=== PATIENT | female | born 1955 | race Caucasian/White ===

== ENCOUNTER 2016-11-11 09:46 | Emergency (ER) ==
[2016-11-11] MEDS ORDERED: TESSALON PO ONE (10:05)
[2016-11-11 10:16] LABS: MANUAL DIFF NEEDED? NO
[2016-11-11 10:17] LABS: BASO% 0.3 % (0.0-0.8); EOS# 0.05 X1000 (0.0-0.7); EOS% 0.5 % (0.0-10.0); HEMATOCRIT 43.9 % (37.0-47.0); HEMOGLOBIN 14.9 g/dL (12.0-16.0); IMM GRAN# 0.07 X1000 (0.0-0.04); IMM GRAN% 0.6 % (0.0-0.5); LYMPH# 2.03 X1000 (1.2-3.4); LYMPH% 18.6 % (20.5-51.1); MCH 29.9 PG (27-31); MCHC 33.9 g/dL (33-37); MCV 88.2 FL (81-99); MONO# 0.89 X1000 (0.11-0.59); MONO% 8.2 % (1.7-9.3); NEUT% 71.8 % (42.2-75.2); PLT 251 X1000 (130-400); RBC 4.98 XMIL (4.2-5.4)
[2016-11-11] MEDS ORDERED: MOTRIN PO ONE (10:29)
[2016-11-11 10:42] LABS: AGAP 12; ALBUMIN 4.5 g/dL (3.5-5.0); ALKALINE PHOSPHATASE 79 U/L (32-104); BUN 23 mg/dL (8-22); CALCIUM 9.8 mg/dL (8.8-10.2); CHLORIDE 100 mmol/L (98-107); COSMO 278; GOT 12 U/L (10-30); GPT 10 U/L (10-36); POTASSIUM 3.7 mmol/L (3.5-5.1); SODIUM 137 mmol/L (136-145); TCO2 25 mmol/L (25-35); TOTAL PROTEIN 7.1 g/dL (6.3-8.3)
--- NOTE | 2016-11-11 10:45 | Diag Imaging Result Document ---
PROCEDURE NAME: CHEST-2 VIEWS - 11/11/2016 CHEST, 2 VIEWS: COMPARISON: 05/10/2016. FINDINGS: Heart size is normal. There are postsurgical changes with volume loss on the right similar to the previous exam. There is a small calcified granuloma from old granulomatous disease at the left upper lobe which is stable. There are no acute changes identified. There is no consolidation, pleural effusion, or pneumothorax identified. IMPRESSION: No evidence of acute disease.
--- NOTE | 2016-11-11 10:46 | PROVIDER DOCUMENTATION ---
HPI-Respiratory General - General Source: patient - History of Present Illness-Resp Quality of Pain: reports: none Onset/Duration: reports: this morning Timing: reports: still present, resolved prior to arrival Exposure: reports: unknown cause Cough Quality/Degree: reports: moderate, dry cough Episode Frequency: occasional episodes Current Respiratory Medication Therapy: Initiated see nurses note Modifying Factors: improves with: nothing Associated Symptoms: reports: cough, fever/chills (F) Similar Symptoms Previously?: Yes Recently seen or treated by another doctor?: Yes <Vikki Ren - Last Filed: 11/11/16 10:42> <Hernan Andrew - Last Filed: 11/11/16 11:00> - General Chief Complaint: Cough Stated Complaint: COLD SX/SOB/COPD Time Seen by Provider: 11/11/16 10:02 Allergies/Adverse Reactions: Patient Allergies Allergy/AdvReac Type Severity Reaction Status Date / Time Sulfa (Sulfonamide Allergy RASH Verified 03/06/16 19:47 Antibiotics) Home Medications: Home Medication List Medication Instructions Recorded Confirmed Last Taken Type Alprazolam [Xanax] 1 mg PO TID PRN PRN 08/06/14 03/08/16 12/12/15 17:00 History Divalproex E.r. [Depakote ER] 500 mg PO BID 08/06/14 03/08/16 12/12/15 17:00 History Albuterol Sulfate Inhaler 2 puff INH Q6H PRN PRN #0 inhaler 08/07/14 03/08/16 17:00 Rx [Ventolin Hfa] Aripiprazole [Abilify] 5 mg PO QHS 02/04/15 03/08/16 12/12/15 17:00 History Budesonide/Formoterol Fumarate 10.2 gm IH BID 02/04/15 03/08/16 12/12/15 17:00 History [Symbicort 160-4.5 Mcg Inhaler] Alprazolam [Xanax] 1 mg PO TID #30 tablet 03/28/16 Unknown Rx Aripiprazole [Abilify] 5 mg PO QHS #30 tablet 03/28/16 Unknown Rx Citalopram [Celexa] 40 mg PO QAM #30 tablet 03/28/16 Unknown Rx Diltiazem C.d. [Cardizem Cd] 240 mg PO DAILY #30 capsule 03/28/16 Unknown Rx Divalproex E.r. [Depakote ER] 500 mg PO BID #60 tablet 03/28/16 Unknown Rx Azithromycin [Zithromax Z-Viral] 250 mg PO DIRECTED #1 pkg 11/11/16 Unknown Rx Guaifenesin/D-Methorphan Hb/PE 1 each PO Q6-8H PRN PRN #14 tablet 11/11/16 Unknown Rx [Deconex Dmx Tablet] - History of Present Illness-Resp Nature of Presenting Problem: Pt is 61 y/o F presents to the ED with cough and F. Pt states hx of lung cancer and numerous episodes of pneumonia. Pt denies SOB. Pt states dry cough. (Vikki Ren) Review of Systems - Adult - REVIEW OF SYSTEMS - ADULT Constitutional: reports: fever. denies: chills Eyes: denies: blurred vision, double vision Ears, Nose, Mouth & Throat: denies: ear pain, nose pain, throat pain Cardiovascular: reports: irregular heart rate (tachy). denies: chest pain, heart murmur Respiratory: reports: cough. denies: shortness of breath, wheezing Gastrointestinal: denies: abdominal pain, diarrhea, nausea, vomiting Genitourinary: denies: dysuria, hematuria Musculoskeletal: denies: bone pain, joint pain, neck pain Integumentary: denies: hives, itching Neurological: denies: dizziness/vertigo, headache/migraines Psychiatric: denies: anxiety, alcohol/drug dependence, depression Endocrine: reports: no symptoms reported Hematologic/Lymphatic: reports: no symptoms reported Allergic/Immunologic: reports: no symptoms reported All Other Systems: Reviewed and Negative <Vikki Ren - Last Filed: 11/11/16 10:42> Past History - Adult - PAST MEDICAL HISTORY-ADULT Review of Records: reports: Nursing Assessment Review, Medications Reviewed, Social history reviewed & non-contributory. Major Childhood Illnesses: reports: denies history Cardiovascular: reports: HTN, hyperlipidemia Respiratory: reports: asthma, COPD (possible), cancer (lung cancer), pneumonia Gastrointestinal: reports: denies history Obstetrical/Gynecological: reports: denies history Genitourinary: reports: denies history Musculoskeletal: reports: denies history Neurological: reports: denies history Psychiatric: reports: anxiety, depression Endocrine/Immune: reports: denies history Other Conditions: reports: denies history Additional History: currently taking precautionary chemotherapy - PRIOR SURGERIES/PROCEDURES Surgical/Procedure History: reports: appendectomy, hysterectomy, , other (partial lung removed due to lung cancer) - IMMUNIZATION STATUS Childhood Immunizations: See Nurse Assessment Flu Vaccine: See Nurse Assessment - FAMILY HISTORY Family History: CAD over 55 yo, cancer (grandmother with uterine cancer; mother with breast cancer) - SOCIAL HISTORY Smoking: quit greater than 1 year, cigarettes Substance Use: denies Living Situation: family <Vikki Ren - Last Filed: 11/11/16 10:42> Physical Exam-General - PHYSICAL EXAM-ADULT Initial Vital Signs Reviewed: Yes - CONSTITUTIONAL General Appearance: appears well, alert, no apparent distress - EYES Eyes: PERRL/EOMI, pink conjunctivae, fundi clear, no AV nicking - HEAD, EARS, NOSE, MOUTH & THROAT HENMT: normocephalic/atraumatic, moist mucous membranes, normal ENT inspection, TMs normal, pharynx normal - NECK Neck: non-tender, full range of motion, supple, normal inspection - RESPIRATORY Respiratory: chest non-tender, normal breath sounds, no pleuratic chest pain, no respiratory distress, no accessory muscle use, rhonchi (bilateral posterior bases) - CARDIOVASCULAR Cardiovascular: normal peripheral pulses, no edema, no gallop, no JVD, no murmur , tachycardia - GASTROINTESTINAL (ABDOMEN) Abdominal Exam: normal bowel sounds, non tender, soft, no organomegaly, no pulsatile mass - LYMPHATIC Lymphatic: no adenopathy - MUSCULOSKELETAL Back Exam: normal inspection, no CVA tenderness, no vertebral tenderness Extremity: normal range of motion, non-tender, normal gait, normal inspection, no pedal edema, no calf tenderness - SKIN Integumentary: normal color, normal turgor, warm/dry - NEUROLOGIC Neurologic: visual artist II-XII nml as tested, grossly normal, no motor/sensory deficits - PSYCHIATRIC Psych/Mental Status: normal mood/affect, normal thought content, normal thought process, oriented x 3 <Vikki Ren - Last Filed: 11/11/16 10:42> Progress - XRAY 1 XRAY: Bilateral XRAY Study: Chest Impression: Normal XRAY Interpretation: NAD <Vikki Ren - Last Filed: 11/11/16 10:42> <Hernan Andrew - Last Filed: 11/11/16 11:00> - PLAN OF CARE/RESULTS Progress/Plan/Lab Results: Laboratory Tests 11/11/16 11/11/16 11/11/16 10:08 10:09 10:09 WBC 10.89 H RBC 4.98 Hgb 14.9 Hct 43.9 MCV 88.2 MCH 29.9 MCHC 33.9 RDW Std Deviation 13.7 Plt Count 251 MPV 11.0 H Immature Gran % (Auto) 0.6 H Neut % (Auto) 71.8 Lymph % (Auto) 18.6 L [place] % (Auto) 8.2 Eos % (Auto) 0.5 Baso % (Auto) 0.3 Immature Gran # (Auto) 0.07 H Neut # (Auto) 7.82 H Lymph # (Auto) 2.03 [place] # (Auto) 0.89 H Eos # (Auto) 0.05 Baso # (Auto) 0.03 Sodium 137 Potassium 3.7 Chloride 100 Carbon Dioxide 25 Anion Gap 12 BUN 23 H Creatinine 0.8 Estimated GFR/1.73 m2 > 60 BUN/Creatinine Ratio 29 Glucose 114 H Calculated Osmolality 278 Calcium 9.8 Total Bilirubin 0.20 AST 12 ALT 10 Alkaline Phosphatase 79 Total Protein 7.1 Albumin 4.5 Globulin 3.0 Albumin/Globulin Ratio 2.0 Influenza A (Rapid) NEGATIVE Influenza B (Rapid) NEGATIVE Orders Category Date Time Status CHEST-2 VIEWS [RAD] Stat Exams 11/11/16 09:57 Draft CBC WITH DIFF [HEME] Stat Lab 11/11/16 10:09 Completed COMPREHENSIVE METABOLIC PANEL [CHEM] Stat Lab 11/11/16 10:09 Completed Flu [INFLUENZA SCREEN PL] Stat Lab 11/11/16 10:08 Completed Benzonatate [Tessalon] Med 11/11/16 10:05 Discontinued 200 mg PO NOW ONE Ibuprofen [Motrin] Med 11/11/16 10:29 Discontinued 800 mg PO NOW ONE Vital Signs - 24 hr 11/11/16 09:49 Temperature 100.7 F H Pulse Rate 114 H Respiratory 20 Rate Blood Pressure 164/112 O2 Sat by Pulse 96 Oximetry (Vikki Ren) Pt is feeling well. Will tx as outpt. She is in agreement. (Hernan Andrew) Departure <Vikki Ren - Last Filed: 11/11/16 10:42> - Departure Time of Disposition Order: 10:59 Certified Medical Emergency: Emergent <Hernan Andrew - Last Filed: 11/11/16 11:00> - Departure DIAGNOSIS: Upper respiratory infection Qualifiers: URI type: unspecified URI Qualified Code(s): J06.9 - Acute upper respiratory infection, unspecified Disposition: HOME 01 Condition: Good Additional Instructions: Take medication as prescribed. Rest and stay well hydrated. Alternate tylenol and motrin for fever and pain. Follow up with your primary care provider. ED Follow Up Instructions: You have been treated by a care provider in the Emergency Department. These instructions are being provided to you so you can have an understanding of how to care for yourself upon discharge. Upon discharge from the Emergency Department, you are responsible for making arrangements for follow-up care by a physician of your choice. Take all prescribed medications as directed. Return to the Emergency Department immediately for any new or worsening symptoms. You may call the Physician Referral phone number at [phone] to obtain a list of Physicians who are taking new patients. Prescriptions: Guaifenesin/D-Methorphan Hb/PE [Deconex Dmx Tablet] 1 each PO Q6-8H PRN PRN #14 tablet PRN Reason: Cough and congestion Azithromycin [Zithromax Z-Viral] 250 mg PO DIRECTED #1 pkg Referrals: Jose R Laguna MD [Primary Care Provider] - Attestation - Scribe Verification/Attestation Scribe:: Vikki Ren Acting as Scribe for:: Hernan Andrew Scribe documention review:: This chart was documented by a scribe and accurately reflects the service the provider performed and the decisions made by the provider. <Vikki Ren - Last Filed: 11/11/16 10:42> - Physician/ ISAAC Attestation Patient care was provided by Advanced Practice Provider:: Yes Advanced Practice Provider:: Hernan Andrew Advanced Practice Provider documentation review:: The Mid-level provider documentation, treatment plan and medical decision making was reviewed by the physician who agrees with all treatment and medical decision making by the MLP. <Hernan Andrew - Last Filed: 11/11/16 11:00> Physician Attestation
[2016-11-11] MEDS ORDERED: ROCEPHIN IM ONE (10:58)
[2016-11-11] MEDS ORDERED: DECADRON IM ONE (10:58)
[2016-11-11] MEDS ORDERED: XYLOCAINE-MPF 1% INJ ONE (10:58)
[2016-11-11 11:55] VITALS: BP 140/98
== END 2016-11-11 11:54 | disposition home or self-care (01) ==
LOC: P.ED 09:46
DX: J06.9 Acute upper respiratory infection, unspecified (principal); R05 Cough; R50.9 Fever, unspecified; R00.0 Tachycardia, unspecified; I10 Essential (primary) hypertension; E78.5 Hyperlipidemia, unspecified; Z85.118 Personal history of other malignant neoplasm of bronchus and lung; Z90.2 Acquired absence of lung [part of]; Z79.899 Other long term (current) drug therapy; F41.9 Anxiety disorder, unspecified; F32.9 Major depressive disorder, single episode, unspecified; Z87.891 Personal history of nicotine dependence; Z79.51 Long term (current) use of inhaled steroids; Z82.49 Family history of ischemic heart disease and other diseases of the circulatory system; Z80.49 Family history of malignant neoplasm of other genital organs; Z80.3 Family history of malignant neoplasm of breast
CPT/HCPCS: 71020; 80053; 85025; 87804; 96372; J0696

== ENCOUNTER 2016-11-15 05:59 | Emergency (ER) ==
--- NOTE | 2016-11-15 07:41 | PROVIDER DOCUMENTATION ---
HPI-General Adult - General Chief Complaint: Flu Symptoms Stated Complaint: FLU SX Time Seen by Provider: 11/15/16 07:25 Source: patient Allergies/Adverse Reactions: Patient Allergies Allergy/AdvReac Type Severity Reaction Status Date / Time Sulfa (Sulfonamide Allergy RASH Verified 03/06/16 19:47 Antibiotics) Home Medications: Home Medication List Medication Instructions Recorded Confirmed Last Taken Type Divalproex E.r. [Depakote ER] 500 mg PO BID 08/06/14 03/08/16 12/12/15 17:00 History Albuterol Sulfate Inhaler 2 puff INH Q6H PRN PRN #0 inhaler 08/07/14 03/08/16 17:00 Rx [Ventolin Hfa] Budesonide/Formoterol Fumarate 10.2 gm IH BID 02/04/15 03/08/16 12/12/15 17:00 History [Symbicort 160-4.5 Mcg Inhaler] Alprazolam [Xanax] 1 mg PO TID #30 tablet 03/28/16 Unknown Rx Aripiprazole [Abilify] 5 mg PO QHS #30 tablet 03/28/16 Unknown Rx Citalopram [Celexa] 40 mg PO QAM #30 tablet 03/28/16 Unknown Rx Diltiazem C.d. [Cardizem Cd] 240 mg PO DAILY #30 capsule 03/28/16 Unknown Rx Guaifenesin/D-Methorphan Hb/PE 1 each PO Q6-8H PRN PRN #14 tablet 11/11/16 Unknown Rx [Deconex Dmx Tablet] Azithromycin [Zithromax Z-Viral] 250 mg PO DIRECTED #1 pkg 11/15/16 Unknown Rx Hydrocodone Bit/Homatropine 5 ml PO Q6H PRN #100 ml 11/15/16 Unknown Rx [Hycodan Syrup] - History of Present Illness -Gen Adult Nature of Presenting Problems: has had nasal congestion, [employer] cough. and ant CP, worse with inspir, fever up to 102 since Sat. Was seen here Sat, given med for cough, congestion, but still cannot sleep due to cough, Has not called PCP yet. Had pneumonia last year, had to be hospitalized, is afraind has pneumonia again Location of Pain/Injury: reports: chest Pain Radiation: reports: no radiation Quality of Pain: reports: sharp Severity: reports: moderate Onset/Duration: reports: 5 days ago Timing: reports: still present Context/Activities at Onset: reports: none Modifying Factors: improves with: other (see HPI) Associated Symptoms: reports: cough, fever/chills, malaise, muscle aches, vomiting, weakness, other (denies facial pain). denies: diarrhea, nausea Similar Symptoms Previously?: Yes (see HPI) Recently seen or treated by another doctor?: Yes (see HPI) Review of Systems - Adult - REVIEW OF SYSTEMS - ADULT Constitutional: reports: see HPI Eyes: reports: no symptoms reported Ears, Nose, Mouth & Throat: reports: see HPI Cardiovascular: reports: no symptoms reported Respiratory: reports: see HPI Gastrointestinal: reports: no symptoms reported Genitourinary: reports: no symptoms reported Musculoskeletal: reports: see HPI Neurological: reports: no symptoms reported Psychiatric: reports: no symptoms reported Endocrine: reports: no symptoms reported Hematologic/Lymphatic: reports: no symptoms reported Allergic/Immunologic: reports: no symptoms reported Past History - Adult - PAST MEDICAL HISTORY-ADULT Review of Records: reports: Medications Reviewed Major Childhood Illnesses: reports: denies history Cardiovascular: reports: HTN, hyperlipidemia Respiratory: reports: asthma, COPD (possible), cancer (lung cancer), pneumonia Gastrointestinal: reports: denies history Obstetrical/Gynecological: reports: denies history Genitourinary: reports: denies history Musculoskeletal: reports: denies history Neurological: reports: denies history Psychiatric: reports: anxiety, depression Endocrine/Immune: reports: denies history Other Conditions: reports: denies history Additional History: currently taking precautionary chemotherapy - PRIOR SURGERIES/PROCEDURES Surgical/Procedure History: reports: appendectomy, hysterectomy, , other (partial lung removed due to lung cancer) - IMMUNIZATION STATUS Childhood Immunizations: See Nurse Assessment Flu Vaccine: See Nurse Assessment - FAMILY HISTORY Family History: CAD over 55 yo, cancer (grandmother with uterine cancer; mother with breast cancer) - SOCIAL HISTORY Smoking: denies Physical Exam-General - PHYSICAL EXAM-ADULT Initial Vital Signs Reviewed: Yes - CONSTITUTIONAL General Appearance: appears well, alert - EYES Eyes: PERRL/EOMI, pink conjunctivae - HEAD, EARS, NOSE, MOUTH & THROAT HENMT: normocephalic/atraumatic, moist mucous membranes, normal ENT inspection, pharynx normal - NECK Neck: full range of motion, supple - RESPIRATORY Respiratory: lungs clear, normal breath sounds, no respiratory distress - CARDIOVASCULAR Cardiovascular: regular rate, rhythm, no JVD, no murmur - GASTROINTESTINAL (ABDOMEN) Abdominal Exam: non tender, soft - GENITOURINARY Female Genitalia/Pelvic Exam: deferred Rectal Exam: deferred - MUSCULOSKELETAL Back Exam: normal inspection, no CVA tenderness, no vertebral tenderness Extremity: normal range of motion, normal inspection - SKIN Integumentary: normal color, normal turgor, warm/dry - NEUROLOGIC Neurologic: scientific artist II-XII nml as tested, grossly normal, no motor/sensory deficits - PSYCHIATRIC Psych/Mental Status: normal mood/affect, normal thought content, normal thought process, oriented x 3 Progress - PLAN OF CARE/RESULTS Progress/Plan/Lab Results: Vital Signs Temp Pulse Resp BP Pulse Ox 11/15/16 06:15 97.9 F 120 H 20 145/84 95 Sulfa (Sulfonamide Antibiotics) Allergy (Verified 03/06/16 19:47) RASH Divalproex E.r. [Depakote ER] 500 mg PO BID 08/06/14 Albuterol Sulfate Inhaler [Ventolin Hfa] 2 puff INH Q6H PRN PRN #0 inhaler 08/07 Budesonide/Formoterol Fumarate [Symbicort 160-4.5 Mcg Inhaler] 10.2 gm IH BID Alprazolam [Xanax] 1 mg PO TID #30 tablet 03/28/16 Aripiprazole [Abilify] 5 mg PO QHS #30 tablet 03/28/16 Citalopram [Celexa] 40 mg PO QAM #30 tablet 03/28/16 Diltiazem C.d. [Cardizem Cd] 240 mg PO DAILY #30 capsule 03/28/16 Guaifenesin/D-Methorphan Hb/PE [Deconex Dmx Tablet] 1 each PO Q6-8H PRN PRN #14 tablet 11/11/16 Laboratory 11/15/16 11/15/16 11/15/16 08:40 08:40 08:40 WBC 9.96 RBC 5.11 Hgb 15.3 Hct 43.8 MCV 85.7 MCH 29.9 MCHC 34.9 RDW Std Deviation 13.1 Plt Count 163 MPV 11.9 H Immature Gran % (Auto) 1.0 H Neut % (Auto) 78.2 H Lymph % (Auto) 11.0 L [place] % (Auto) 8.5 Eos % (Auto) 1.0 Baso % (Auto) 0.3 Immature Gran # (Auto) 0.10 H Neut # (Auto) 7.78 H Lymph # (Auto) 1.10 L [place] # (Auto) 0.85 H Eos # (Auto) 0.10 Baso # (Auto) 0.03 Sodium 128 L Potassium 3.4 L Chloride 88 L Carbon Dioxide 27 Anion Gap 14 BUN 8 Creatinine 0.7 Estimated GFR/1.73 m2 > 60 BUN/Creatinine Ratio 11 Glucose 102 Calculated Osmolality 256 Calcium 10.0 Plasma Lactate 0.8 Influenza A (Rapid) Influenza B (Rapid) 11/15/16 06:35 WBC RBC Hgb Hct MCV MCH MCHC RDW Std Deviation Plt Count MPV Immature Gran % (Auto) Neut % (Auto) Lymph % (Auto) [place] % (Auto) Eos % (Auto) Baso % (Auto) Immature Gran # (Auto) Neut # (Auto) Lymph # (Auto) [place] # (Auto) Eos # (Auto) Baso # (Auto) Sodium Potassium Chloride Carbon Dioxide Anion Gap BUN Creatinine Estimated GFR/1.73 m2 BUN/Creatinine Ratio Glucose Calculated Osmolality Calcium Plasma Lactate Influenza A (Rapid) NEGATIVE Influenza B (Rapid) NEGATIVE Orders Category Date Time Status CHEST-2 VIEWS [RAD] Stat Exams 11/15/16 07:35 Draft BASIC METABOLIC PANEL [CHEM] Stat Lab 11/15/16 08:40 Completed CBC WITH ELECTRONIC DIFF [HEME] Stat Lab 11/15/16 08:40 Completed Flu [INFLUENZA SCREEN PL] Stat Lab 11/15/16 06:35 Completed LACTATE, PLASMA [CHEM] Stat Lab 11/15/16 08:40 Completed Albuterol 2.5MG/Ipratrop 0.5MG [Duoneb (A & A)] Med 11/15/16 08:58 Discontinued 3 ml INH NOW ONE Albuterol [Albuterol Neb] Med 11/15/16 09:04 Discontinued 2.5 mg .ROUTE .STK-MED ONE Azithromycin [Zithromax] Med 11/15/16 08:28 Discontinued 500 mg PO NOW ONE CefTRIAXONE 1 GM/NS [Rocephin 1 gm/Ns] 50 ml Med 11/15/16 08:28 Discontinued IV NOW Aerosol Treatments Routine Oth 11/15/16 08:58 Active Aerosol Treatments Stat Oth 11/15/16 08:58 Active EKG [EKG] Stat Ther 11/15/16 07:43 Ordered Laboratory Tests 11/15/16 11/15/16 11/15/16 06:35 08:40 08:40 WBC RBC Hgb Hct MCV MCH MCHC RDW Std Deviation Plt Count MPV Immature Gran % (Auto) Neut % (Auto) Lymph % (Auto) [place] % (Auto) Eos % (Auto) Baso % (Auto) Immature Gran # (Auto) Neut # (Auto) Lymph # (Auto) [place] # (Auto) Eos # (Auto) Baso # (Auto) Sodium 128 L Potassium 3.4 L Chloride 88 L Carbon Dioxide 27 Anion Gap 14 BUN 8 Creatinine 0.7 Estimated GFR/1.73 m2 > 60 BUN/Creatinine Ratio 11 Glucose 102 Calculated Osmolality 256 Calcium 10.0 Plasma Lactate 0.8 Influenza A (Rapid) NEGATIVE Influenza B (Rapid) NEGATIVE 11/15/16 08:40 WBC 9.96 RBC 5.11 Hgb 15.3 Hct 43.8 MCV 85.7 MCH 29.9 MCHC 34.9 RDW Std Deviation 13.1 Plt Count 163 MPV 11.9 H Immature Gran % (Auto) 1.0 H Neut % (Auto) 78.2 H Lymph % (Auto) 11.0 L [place] % (Auto) 8.5 Eos % (Auto) 1.0 Baso % (Auto) 0.3 Immature Gran # (Auto) 0.10 H Neut # (Auto) 7.78 H Lymph # (Auto) 1.10 L [place] # (Auto) 0.85 H Eos # (Auto) 0.10 Baso # (Auto) 0.03 Sodium Potassium Chloride Carbon Dioxide Anion Gap BUN Creatinine Estimated GFR/1.73 m2 BUN/Creatinine Ratio Glucose Calculated Osmolality Calcium Plasma Lactate Influenza A (Rapid) Influenza B (Rapid) Is on Depakote and Celexa, both of which are known to cause hypoglycemia. She is not having sx @ this time. She has been advised to follow up with Dr Laguna for medication adjustment - XRAY 1 XRAY Study: Chest Impression: Abnormal XRAY Interpretation: Lingular pneumonia Departure - Departure Time of Disposition Order: 10:33 DIAGNOSIS: Hyponatremia Pneumonia Qualifiers: Pneumonia type: due to unspecified organism Laterality: left Lung location: unspecified part of lung Qualified Code(s): J18.9 - Pneumonia, unspecified organism Disposition: HOME 01 Certified Medical Emergency: Emergent Condition: Good Additional Instructions: ED Follow Up Instructions: You have been treated by a care provider in the Emergency Department. These instructions are being provided to you so you can have an understanding of how to care for yourself upon discharge. Upon discharge from the Emergency Department, you are responsible for making arrangements for follow-up care by a physician of your choice. Take all prescribed medications as directed. Return to the Emergency Department immediately for any new or worsening symptoms. You may call the Physician Referral phone number at [phone] to obtain a list of Physicians who are taking new patients. Prescriptions: Hydrocodone Bit/Homatropine [Hycodan Syrup] 5 ml PO Q6H PRN #100 ml PRN Reason: Cough Azithromycin [Zithromax Z-Viral] 250 mg PO DIRECTED #1 pkg Instructions: Pneumonia, Adult, Hyponatremia Physician Attestation - Physician Attestation I, the provider, attest to the following statement:: Hamzah Phillips Physician documentation Attestation:: This documentation recorded by the scribe accurately reflects the service I personally performed and the decisions made by me.
[2016-11-15] MEDS ORDERED: ROCEPHIN 1 GM/NS 50 ML IV ONE (08:28)
[2016-11-15] MEDS ORDERED: ZITHROMAX PO ONE (08:28)
--- NOTE | 2016-11-15 08:41 | ED EKG INTERP ---
EKG Interpretation - EKG Time of EKG reading by physician:: 07:45 EKG Read and Signed by:: Hamzah Phillips EKG Interpretation (*Must complete 3 of following elements*): Abnormal Rate: 114 Rhythm: sinus tachycardia Comments: nonspecific ST and T wave abnormality Attestation - Scribe Verification/Attestation Scribe:: Vikki Ren Acting as Scribe for:: Hamzah Phillips Scribe documention review:: This chart was documented by a scribe and accurately reflects the service the provider performed and the decisions made by the provider.
[2016-11-15 08:52] LABS: MANUAL DIFF NEEDED? NO
--- NOTE | 2016-11-15 08:52 | Diag Imaging Result Document ---
PROCEDURE NAME: CHEST-2 VIEWS - 11/15/2016 TWO VIEWS OF THE CHEST: FINDINGS: There is some fibrosis present laterally on the right with volume loss and elevation of the right hemidiaphragm. There is ill-defined opacity in the lingula which was not present on 11/11/2016. IMPRESSION: Lingular pneumonia.
[2016-11-15 08:54] LABS: MCV 85.7 FL (81-99)
[2016-11-15] MEDS ORDERED: DUONEB (A & A) INH ONE (08:58)
[2016-11-15 09:01] LABS: BASO% 0.3 % (0.0-0.8); HEMATOCRIT 43.8 % (37.0-47.0); HEMOGLOBIN 15.3 g/dL (12.0-16.0); MCH 29.9 PG (27-31); MCHC 34.9 g/dL (33-37); MONO# 0.85 X1000 (0.11-0.59); MONO% 8.5 % (1.7-9.3); MPV 11.9 FL (7.4-10.4); NEUT% 78.2 % (42.2-75.2); PLT 163 X1000 (130-400); RBC 5.11 XMIL (4.2-5.4)
[2016-11-15] MEDS ORDERED: ALBUTEROL NEB ONE (09:04)
[2016-11-15 09:24] LABS: AGAP 14; BUN 8 mg/dL (8-22); CHLORIDE 88 mmol/L (98-107); COSMO 256; POTASSIUM 3.4 mmol/L (3.5-5.1); SODIUM 128 mmol/L (136-145); TCO2 27 mmol/L (25-35)
[2016-11-15 10:50] VITALS: BP 131/089
--- NOTE | 2016-11-15 11:32 | EKG Report ---
Test Performed on : 11/15/2016 07:45:01 AM Test Reason : palpitat Blood Pressure : / mmHG Vent. Rate : 114 BPM Atrial Rate : 114 BPM P-R Int : 158 ms QRS Dur : 094 ms QT Int : 336 ms P-R-T Axes : 064 -25 086 degrees QTc Int : 463 ms Sinus tachycardia. Nonspecific ST and T wave abnormality Abnormal ECG When compared with ECG of 04-FEB-2015 16:20, Vent. rate has increased BY 41 BPM Nonspecific T wave abnormality no longer evident in Inferior leads T wave inversion now evident in Lateral leads Unconfirmed Result
== END 2016-11-15 10:50 | disposition home or self-care (01) ==
LOC: P.ED 05:59
DX: J18.9 Pneumonia, unspecified organism (principal); E87.1 Hypo-osmolality and hyponatremia; R94.31 Abnormal electrocardiogram [ECG] [EKG]; R09.81 Nasal congestion; R05 Cough; R07.89 Other chest pain; R50.9 Fever, unspecified; R07.1 Chest pain on breathing; Z79.899 Other long term (current) drug therapy; R53.81 Other malaise; M79.1 Myalgia; R11.10 Vomiting, unspecified; R53.1 Weakness; I10 Essential (primary) hypertension; E78.5 Hyperlipidemia, unspecified; J45.909 Unspecified asthma, uncomplicated; Z85.118 Personal history of other malignant neoplasm of bronchus and lung; Z90.2 Acquired absence of lung [part of]; Z82.49 Family history of ischemic heart disease and other diseases of the circulatory system; Z80.3 Family history of malignant neoplasm of breast; Z80.49 Family history of malignant neoplasm of other genital organs
CPT/HCPCS: 71020; 80048; 83605; 85025; 87804; 93005; 94640; J0696

== ENCOUNTER 2019-09-16 05:23 | Inpatient (IN) ==
--- NOTE | 2019-09-16 05:51 | PROVIDER DOCUMENTATION ---
HPI-Respiratory General - General Chief Complaint: Shortness of Breath Stated Complaint: SOB Time Seen by Provider: 09/16/19 05:44 Source: patient Allergies/Adverse Reactions: Patient Allergies Allergy/AdvReac Type Severity Reaction Status Date / Time Sulfa (Sulfonamide Allergy RASH Verified 05/22/18 15:39 Antibiotics) Home Medications: Home Medication List Medication Instructions Recorded Confirmed Last Taken Type Divalproex E.r. [Depakote ER] 500 mg PO BID 08/06/14 09/16/19 12/12/15 17:00 History Albuterol Sulfate Inhaler 2 puff INH Q6H PRN PRN #0 inhaler 08/07/14 09/16/19 12/12/15 17:00 Rx [Ventolin Hfa] Budesonide/Formoterol Fumarate 10.2 gm IH BID 02/04/15 09/16/19 12/12/15 17:00 History [Symbicort 160-4.5 Mcg Inhaler] Aripiprazole [Abilify] 5 mg PO QHS #30 tablet 03/28/16 09/16/19 Unknown Rx Citalopram [Celexa] 40 mg PO QAM #30 tablet 03/28/16 09/16/19 Unknown Rx Amlodipine Besylate 5 mg PO DAILY 09/16/19 09/16/19 Unknown History - History of Present Illness-Resp Nature of Presenting Problem: 2 DAYS OF COUGHING DRY HOARSENESS Quality of Pain: reports: aching Severity in ED: reports: moderate Onset/Duration: reports: 2 days ago Timing: reports: still present Context: reports: multiple patients with similar complaints Cough Quality/Degree: reports: dry cough. denies: blood streaked sputum Episode Frequency: occasional episodes Modifying Factors: improves with: nothing Associated Symptoms: reports: fever/chills, hurts to breathe, nasal drainage, shortness of breath, short of breath Similar Symptoms Previously?: Yes Recently seen or treated by another doctor?: No Review of Systems - Adult - REVIEW OF SYSTEMS - ADULT Constitutional: reports: chills, fever Eyes: reports: no symptoms reported Ears, Nose, Mouth & Throat: reports: no symptoms reported, throat pain Cardiovascular: reports: no symptoms reported Respiratory: reports: cough, shortness of breath, wheezing Gastrointestinal: reports: no symptoms reported, constipation Musculoskeletal: reports: no symptoms reported Integumentary: reports: no symptoms reported Neurological: reports: no symptoms reported Psychiatric: reports: no symptoms reported Endocrine: reports: no symptoms reported Hematologic/Lymphatic: reports: no symptoms reported Allergic/Immunologic: reports: no symptoms reported Past History - Adult - PAST MEDICAL HISTORY-ADULT Review of Records: reports: Nursing Assessment Review, Medications Reviewed, Social history reviewed & non-contributory. Major Childhood Illnesses: reports: denies history Cardiovascular: reports: HTN, hyperlipidemia Respiratory: reports: asthma, COPD (possible), cancer (lung cancer), pneumonia Gastrointestinal: reports: denies history Obstetrical/Gynecological: reports: denies history Genitourinary: reports: denies history Musculoskeletal: reports: denies history Neurological: reports: denies history Psychiatric: reports: anxiety, depression Endocrine/Immune: reports: denies history Other Conditions: reports: denies history Additional History: currently taking precautionary chemotherapy - PRIOR SURGERIES/PROCEDURES Surgical/Procedure History: reports: hysterectomy, , other, appendectomy - IMMUNIZATION STATUS Childhood Immunizations: See Nurse Assessment Flu Vaccine: See Nurse Assessment - FAMILY HISTORY Family History: CAD over 55 yo, cancer (grandmother with uterine cancer; mother with breast cancer) Physical Exam-General - PHYSICAL EXAM-ADULT Initial Vital Signs Reviewed: Yes - CONSTITUTIONAL General Appearance: moderate distress - EYES Eyes: PERRL/EOMI, pink conjunctivae - HEAD, EARS, NOSE, MOUTH & THROAT HENMT: normocephalic/atraumatic, moist mucous membranes, normal ENT inspection, TMs normal, pharynx normal - NECK Neck: non-tender, full range of motion, supple - RESPIRATORY Respiratory: lungs clear, normal breath sounds - CARDIOVASCULAR Cardiovascular: normal peripheral pulses, regular rate, rhythm - GASTROINTESTINAL (ABDOMEN) Abdominal Exam: normal bowel sounds, non tender, soft - LYMPHATIC Lymphatic: no adenopathy, axilla node tender - MUSCULOSKELETAL Back Exam: normal inspection, no CVA tenderness, no vertebral tenderness Extremity: normal gait - SKIN Integumentary: normal color, normal turgor - NEUROLOGIC Neurologic: grossly normal - PSYCHIATRIC Psych/Mental Status: oriented x 3 Progress - PLAN OF CARE/RESULTS Progress/Plan/Lab Results: Vital Signs - 8 hr 09/16/19 05:34 Temperature 99.3 F Pulse Rate 111 H Respiratory Rate 22 Blood Pressure 132/65 O2 Sat by Pulse Oximetry 92 L Laboratory Results - last 24 hr 09/16/19 09/16/19 09/16/19 05:43 05:50 05:54 WBC 9.97 RBC 4.71 Hgb 13.4 Hct 40.4 MCV 85.8 MCH 28.5 MCHC 33.2 RDW Std Deviation 13.6 Plt Count 225 MPV 11.8 H Immature Gran % (Auto) 0.3 Neut % (Auto) 71.9 Lymph % (Auto) 15.8 L Craig % (Auto) 11.4 H Eos % (Auto) 0.3 Baso % (Auto) 0.3 Immature Gran # (Auto) 0.03 Neut # (Auto) 7.16 H Lymph # (Auto) 1.58 Craig # (Auto) 1.14 H Eos # (Auto) 0.03 Baso # (Auto) 0.03 Specimen Type ARTERIAL Sample Site R RADIAL pH 7.48 H pCO2 32 L pO2 59 L HCO3 25.5 Base Excess 0.9 Oxyhemoglobin 91.4 L ABG O2 Sat (Calculated) 17.1 ABG O2 Saturation 96.1 ABG Carboxyhemoglobin 3.70 H ABG Methemoglobin 1.2 Jon Test YES A-a O2 Difference 51.0 Total Hemoglobin 13.3 Lactate 1.00 Blood Gas Modality ROOM AIR FiO2 % 21.0 Group A Strep Rapid NEGATIVE Orders Category Date Time Status Cardiac Monitoring DIRECTED Care 09/16/19 05:37 Active Saline Loc NOW Care 09/16/19 05:37 Active CHEST-2 VIEWS [RAD] Stat Exams 09/16/19 05:37 Taken ABG [RESP] Routine Lab 09/16/19 05:54 Completed CBC WITH ELECTRONIC DIFF [HEME] Stat Lab 09/16/19 05:43 Completed CK PROFILE [SP CHEM] Stat Lab 09/16/19 05:43 Received COMPREHENSIVE METABOLIC PANEL [CHEM] Stat Lab 09/16/19 05:[address] Stat Lab 09/16/19 05:50 Completed Flu [INFLUENZA SCREEN PL] Stat Lab 09/16/19 05:50 Received PRO B-NATRIURETIC PEPTIDE Stat Lab 09/16/19 05:43 Received PROTIME WITH INR [COAG] Stat Lab 09/16/19 05:43 Received PTT [COAG] Stat Lab 09/16/19 05:43 Received TROPONIN T Stat Lab 09/16/19 05:43 Received CefTRIAXONE [Rocephin] 1 gm Med 09/16/19 06:38 Active 0.9% Sodium Chloride Inj [Ns] 50 ml IV NOW CP/SOB/Palp >45 yrs of Age Stat Oth 09/16/19 05:37 Ordered EKG [EKG] Stat Ther 09/16/19 05:37 Ordered Result Diagrams: 09/16/19 05:43 - EKG 1 Time of EKG reading by physician:: 05:51 EKG Read and Signed by:: Rivera Black EKG Interpretation (*Must complete 3 of following elements*): Normal Rate: 109 Rhythm: SINUS TACHYCARDIA [place]: normal QRS: poor R wave progression SD Interval: normal ST Wave: normal - XRAY 1 XRAY Study: Chest Impression: Abnormal (LEFTSIDED PNEUMONIA) Departure - Departure Date of Disposition Decision: 09/16/19 Time of Disposition Decision: 06:38 DIAGNOSIS: Pneumonia Disposition: ADMITTED INPATIENT 09 Certified Medical Emergency: Emergent Condition: Stable Referrals and Follow-Ups: None,PCP [Primary Care Provider] - - Critical Care Note This patient required my direct & personal management of CC.: No Attestation - Physician/ ISAAC Attestation Patient care was provided by Advanced Practice Provider:: No The physician spent face to face time with patient:: Yes Advanced Practice Provider documentation review:: Supervising physician onsite and consulted in the evaluation and care of this patient. The physician did have a face to face encounter with the patient.
[2019-09-16 06:02] LABS: BE 0.9 mmoll (-3.0-3.0); BLOOD TYPE ARTERIAL; HCO3-(ACT) 25.5 mmoll (20.0-26.0); METHB 1.2 % (0.0-1.5); O2(CT) 17.1 mL/dL (15.0-23.0); O2HB 91.4 % (95.0-99.0); PCO2(98.6) 32 mmHg (35-45); PO2(98.6) 59 mmHg (60-100); SAMPLE BLOOD; SAO2 96.1 % (95.0-100.0); THB 13.3 g/dL (11.5-17.4); pH(98.6) 7.48 (7.35-7.45)
[2019-09-16 06:05] LABS: ALLEN TEST YES; MODALITY ROOM AIR
[2019-09-16 06:16] LABS: BASO# 0.03 X1000 (0.0-0.2); BASO% 0.3 % (0.0-0.8); EOS# 0.03 X1000 (0.0-0.7); EOS% 0.3 % (0.0-10.0); HEMATOCRIT 40.4 % (37.0-47.0); HEMOGLOBIN 13.4 g/dL (12.0-16.0); IMM GRAN# 0.03 X1000 (0.0-0.04); IMM GRAN% 0.3 % (0.0-0.5); LYMPH# 1.58 X1000 (1.2-3.4); LYMPH% 15.8 % (20.5-51.1); MCH 28.5 PG (27-31); MCHC 33.2 g/dL (33-37); MCV 85.8 FL (81-99); MONO# 1.14 X1000 (0.11-0.59); MONO% 11.4 % (1.7-9.3); MPV 11.8 FL (7.4-10.4); NEUT# 7.16 X1000 (1.4-6.5); NEUT% 71.9 % (42.2-75.2); PLT 225 X1000 (130-400); RBC 4.71 XMIL (4.2-5.4); RDW 13.6 % (11.5-14.5); WBC 9.97 X1000 (4.8-10.8)
[2019-09-16] MEDS ORDERED: ROCEPHIN 1 GM in NS 50 ML IV ONE (06:38)
[2019-09-16 06:39] LABS: INFLUENZA A NEGATIVE (NEGATIVE); INFLUENZA B NEGATIVE (NEGATIVE)
--- NOTE | 2019-09-16 06:45 | EKG Report ---
Test Performed on : 09/16/2019 05:46:20 AM Test Reason : sob Blood Pressure : / mmHG Vent. Rate : 109 BPM Atrial Rate : 109 BPM P-R Int : 166 ms QRS Dur : 090 ms QT Int : 336 ms P-R-T Axes : 040 -23 034 degrees QTc Int : 452 ms Sinus tachycardia. Minimal voltage criteria for LVH, may be normal variant Borderline ECG When compared with ECG of 15-NOV-2016 07:45, T wave amplitude has decreased in Inferior leads T wave inversion no longer evident in Lateral leads Unconfirmed Result
[2019-09-16 06:54] LABS: INR 1.08; PROTIME 14.6 Seconds (11.0-16.0)
[2019-09-16 06:55] LABS: AGAP 15; ALKALINE PHOSPHATASE 94 U/L (32-104); BUN 6 mg/dL (8-22); CALCIUM 9.3 mg/dL (8.8-10.2); CHLORIDE 95 mmol/L (98-107); CK PROFILE 222 U/L (24-173); COSMO 262; CREATININE 0.4 mg/dL (0.5-0.9); ESTIMATED GFR > 60; GLUCOSE 124 mg/dL (70-104); GOT 23 U/L (10-30); GPT < 5 U/L (10-36); POTASSIUM 4.2 mmol/L (3.5-5.1); PTT 33.8 Seconds (22.3-41.8); SODIUM 131 mmol/L (136-145); TCO2 21 mmol/L (25-35); TOTAL PROTEIN 6.2 g/dL (6.3-8.3)
[2019-09-16 07:09] LABS: CK INDEX 0.8 (0.0-2.5)
[2019-09-16] MEDS ORDERED: ROBITUSSIN-DM PO ONE (07:29)
[2019-09-16] MEDS ORDERED: ROCEPHIN IV ONE (07:29)
--- NOTE | 2019-09-16 07:29 | Diag Imaging Result Doc PS360 ---
EXAM: CHEST-2 VIEWS HISTORY: cough, sob TECHNIQUE: Two views COMPARISON: 03/02/2019 FINDINGS: The lungs are well expanded. The heart is not enlarged. The vessels are not distended. There are dense left lower lung infiltrates. No pleural effusions. IMPRESSION: Left-sided pneumonia Electronically signed by Glen Batista 09/16/2019 7:27 AM
[2019-09-16] MEDS ORDERED: NS + KCL 20 MEQ 1,000 ML IV ONE (07:30)
[2019-09-16] MEDS ORDERED: TYLENOL PO PRN (07:40)
[2019-09-16] MEDS ORDERED: ZOFRAN IV PRN (07:40)
[2019-09-16] MEDS ORDERED: MORPHINE IV PRN (07:40)
[2019-09-16] MEDS ORDERED: ZITHROMAX 500 MG/NS 500 MG/250 ML IVPB IV SCH (08:00)
[2019-09-16] MEDS ORDERED: ROCEPHIN 2 GM in NS 50 ML IV SCH (13:30)
[2019-09-16] MEDS: DUONEB (A & A) INH SCH ×2 (14:30→22:29)
[2019-09-16] MEDS: VENTOLIN HFA INH PRN (14:32)
[2019-09-16] MEDS: NS 1,000 ML IV SCH (14:38)
[2019-09-16] MEDS: DOXYCYCLINE 100 MG in NS 250 ML IV SCH (14:39)
[2019-09-16] MEDS: TYLENOL PO PRN (16:40)
[2019-09-16] MEDS: ABILIFY PO SCH (20:41)
[2019-09-16] MEDS: DEPAKOTE ER PO SCH (20:41)
[2019-09-16] MEDS: SYMBICORT 160/4.5 MICROGM INHALER INH SCH (22:29)
--- NOTE | 2019-09-16 22:30 | HISTORY AND PHYSICAL ---
CHIEF COMPLAINT: Shortness of breath. HISTORY OF PRESENT ILLNESS: This is a 64-year-old female who reports a 2-day history of coughing along with hoarseness and shortness of breath/wheezing. She also reports generalized weakness and body aches. She is a poor historian. PAST MEDICAL HISTORY: 1. Chronic obstructive pulmonary disease/asthma. 2. Hypertension. 3. Bipolar disorder. 4. Diverticulosis. 5. Osteoporosis. 6. 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 SOCIAL HISTORY: The patient started tobacco smoking as half a pack of cigarettes per day in 1969, but quit smoking in 02/2015. She does not drink alcohol and denies using any street drugs. FAMILY HISTORY: Noncontributory. ALLERGIES: The patient reports to be allergic to sulfa drugs. MEDICATIONS: Current home medications: 1. Amlodipine 5 mg orally once daily. 2. Alprazolam 1 mg orally 3 times a day as needed for anxiety. 3. Anoro Ellipta inhaler 1 inhalation once daily. 4. Abilify 5 mg orally once daily at bedtime. 5. Citalopram 40 mg orally once daily. 6. Depakote 500 mg orally once daily. 7. Fluticasone nasal spray 2 sprays per nostril once daily. 8. Loratadine 10 mg orally once daily. 9. Omeprazole 40 mg orally once daily in the morning as directed. 10. ProAir inhaler 2 puffs q.4 hours as needed as directed for wheezing. 11. Boniva 150 mg orally once a month as directed. 12. Simvastatin 40 mg orally once daily at bedtime. REVIEW OF SYSTEMS: A full 14-point review of systems was obtained. It was pretty much the same as already explained in the HPI. She denies having any fever. PHYSICAL EXAMINATION: VITAL SIGNS: Temperature 98.5 degrees, pulse 109 per minute, respiratory rate 20 per minute, blood pressure 132/77, pulse oximetry 98% on room air. GENERAL: The patient is alert and oriented x3. She does not appear to be in any acute distress. She does appear to be somewhat weak. HEENT: Within normal limits. NECK: Supple, without any thyromegaly. LYMPHATICS: No lymphadenopathy noted in the neck region. CHEST: Wall is nontender. CARDIOVASCULAR: First and second heart sounds are audible without any murmurs or gallops. RESPIRATORY: Bilateral lung air entry is moderately decreased, with diffuse wheezing present on expiration bilaterally. No rales are present. GASTROINTESTINAL: Abdomen is soft and nondistended. Normal bowel sounds are present. NEUROLOGIC: No focal deficits are present. MUSCULOSKELETAL: No deformities are present. INTEGUMENTARY: Skin is warm, dry and without any rash. GENITOURINARY: Deferred. LABORATORY DATA: CBC is nondiagnostic, and chemistry showed sodium levels of 131, BUN 6, creatinine 0.4, and glucose levels of 124. There were no significant abnormalities on her comprehensive metabolic panel. ProBNP was slightly elevated at 383 and troponin was found to be negative. Arterial blood gases showed pH of 7.48, pCO2 of 32, and pO2 of 59 on room air. PT and PTT were both within normal limits. Influenza A and B were found to be negative. Group A streptococcal test was also negative on throat swab. DIAGNOSTIC DATA: Chest x-ray obtained at the emergency room showed left lower lung infiltrate. EKG done at the emergency room showed sinus tachycardia with ventricular rate of 109 beats per minute. No significant ischemic abnormalities were noted. IMPRESSION: 1. Left lower lung pneumonia number with acute chronic obstructive pulmonary disease exacerbation. 2. Multiple comorbid conditions including chronic obstructive pulmonary disease, hypertension and bipolar disorder in addition to previous history of adenocarcinoma of the lung. PLAN: The patient will be admitted to the floor, and I will initiate her on doxycycline 100 mg IV every 12 hours. We will continue with ceftriaxone as 2 g IV every 24 hours. We will also provide her bronchodilators via nebulization and continue her routine home medications. I am going to hold off any systemic corticosteroids for now to see if she will respond to the rest of the treatment. Further recommendations will be given as per hospital course. cc: Jose R Laguna MD
[2019-09-16] MEDS: XANAX PO PRN (23:24)
[2019-09-16] MEDS: TESSALON PO PRN (23:24)
[2019-09-17] MEDS: DOXYCYCLINE 100 MG in NS 250 ML IV SCH ×2 (02:31→14:35)
[2019-09-17] MEDS: DUONEB (A & A) INH SCH ×4 (03:53→21:30)
[2019-09-17] MEDS: TESSALON PO PRN ×2 (05:01→17:55)
[2019-09-17] MEDS: NS 1,000 ML IV SCH ×2 (05:45→08:51)
[2019-09-17 08:05] LABS: ESTIMATED GFR > 60
[2019-09-17 08:24] LABS: AGAP 13; ALB/GLOB RATIO 1.1; ALBUMIN 2.9 g/dL (3.5-5.0); ALKALINE PHOSPHATASE 81 U/L (32-104); BUN 6 mg/dL (8-22); CALCIUM 8.5 mg/dL (8.8-10.2); CHLORIDE 100 mmol/L (98-107); COSMO 269; CREATININE 0.5 mg/dL (0.5-0.9); GLUCOSE 83 mg/dL (70-104); GOT 15 U/L (10-30); GPT < 5 U/L (10-36); POTASSIUM 3.7 mmol/L (3.5-5.1); SODIUM 136 mmol/L (136-145); TCO2 23 mmol/L (25-35); TOTAL BILIRUBIN 0.35 mg/dL (0.20-1.00); TOTAL PROTEIN 5.5 g/dL (6.3-8.3)
[2019-09-17 08:28] LABS: BASO# 0.02 X1000 (0.0-0.2); BASO% 0.3 % (0.0-0.8); EOS# 0.03 X1000 (0.0-0.7); EOS% 0.4 % (0.0-10.0); HEMATOCRIT 35.6 % (37.0-47.0); HEMOGLOBIN 11.3 g/dL (12.0-16.0); LYMPH# 1.07 X1000 (1.2-3.4); MCH 28.4 PG (27-31); MCHC 31.7 g/dL (33-37); MCV 89.4 FL (81-99); MONO# 0.75 X1000 (0.11-0.59); MONO% 9.8 % (1.7-9.3); MPV 11.4 FL (7.4-10.4); NEUT# 5.78 X1000 (1.4-6.5); NEUT% 75.5 % (42.2-75.2); PLT 177 X1000 (130-400); RBC 3.98 XMIL (4.2-5.4); RDW 13.6 % (11.5-14.5); WBC 7.65 X1000 (4.8-10.8)
[2019-09-17] MEDS: NORVASC PO SCH (08:44)
[2019-09-17] MEDS: TYLENOL PO PRN (08:44)
[2019-09-17] MEDS: XANAX PO PRN (08:44)
[2019-09-17] MEDS: CELEXA PO SCH (08:44)
[2019-09-17] MEDS: DEPAKOTE ER PO SCH ×2 (08:44→23:29)
[2019-09-17] MEDS ORDERED: ROCEPHIN 2 GM in NS 50 ML IV SCH (09:00)
[2019-09-17] MEDS: SYMBICORT 160/4.5 MICROGM INHALER INH SCH ×2 (09:06→21:31)
--- NOTE | 2019-09-17 13:19 | PROGRESS NOTE ---
DATE: 09/17/2019 SUBJECTIVE: The patient complains of having a significant cough this morning. She denies having any other complaints. OBJECTIVE: Vital Signs: Temperature 98.3 degrees. Earlier, her temperature was 100.8 degrees at 7:14 a.m. today. Pulse rate is 83 beats per minute. Respiratory rate 20 per minute. Blood pressure 112/62. Pulse oximetry 95% on room air. General: The patient is alert and oriented x3. She does not appear to be in any acute distress. Cardiovascular System: First and second heart sounds are audible without any murmurs or gallops. Respiratory System: Bilateral lung air entry is moderately decreased with bilateral mild wheeze present on expiration. Gastrointestinal System: Abdomen is soft and nondistended. Normal bowel sounds are present. Diagnostic Data: CBC shows hemoglobin of 11.3 and hematocrit of 35.6. Rest of the CBC is nondiagnostic. In comparison, her hemoglobin and hematocrit were 13.4 and 40.4 yesterday. Chemistry was nondiagnostic. IMPRESSION: 1. Left lower lung pneumonia in this 64-year-old lady who also has acute chronic obstructive pulmonary disease exacerbation. 2. Multiple comorbid conditions including hypertension and bipolar disorder, in addition to previous history of renal carcinoma of the lung. PLAN: We will continue with the IV ceftriaxone, along with doxycycline and continue with her routine medications. We will also continue with the albuterol and ipratropium bromide nebulization treatments, and give her Hydromet cough syrup 5 mL orally every 6 hours as needed for severe cough. I am going to repeat a chest x-ray and CBC along with a basic metabolic panel in the morning tomorrow. She does have some drop in hemoglobin and hematocrit but that appears to be secondary to hemodilution. We are going to monitor that for now. Further recommendations will be as per hospital course. cc: Jose R Laguna MD
[2019-09-17] MEDS: HYDROMET LIQUID PO PRN ×2 (17:55→23:33)
[2019-09-17] MEDS: ABILIFY PO SCH (23:28)
[2019-09-18] MEDS: DOXYCYCLINE 100 MG in NS 250 ML IV SCH ×2 (01:45→16:47)
[2019-09-18] MEDS: DUONEB (A & A) INH SCH ×4 (03:31→21:06)
[2019-09-18] MEDS: NS 1,000 ML IV SCH ×2 (06:10→21:27)
--- NOTE | 2019-09-18 06:31 | Diag Imaging Result Doc PS360 ---
EXAM: CHEST-PORTABLE HISTORY: Pneumonia TECHNIQUE: Single view COMPARISON: 09/16/2019 FINDINGS: There are dense bilateral infiltrates on the current exam. These are much more pronounced than on the prior study. No cardiomegaly. No pleural effusions identified. IMPRESSION: Worsening pneumonia Electronically signed by Glen Batista 09/18/2019 6:29 AM
[2019-09-18 07:25] LABS: BASO# 0.01 X1000 (0.0-0.2); BASO% 0.1 % (0.0-0.8); EOS# 0.04 X1000 (0.0-0.7); EOS% 0.4 % (0.0-10.0); HEMATOCRIT 33.6 % (37.0-47.0); HEMOGLOBIN 10.7 g/dL (12.0-16.0); IMM GRAN# 0.02 X1000 (0.0-0.04); IMM GRAN% 0.2 % (0.0-0.5); LYMPH# 0.62 X1000 (1.2-3.4); LYMPH% 6.5 % (20.5-51.1); MCH 27.9 PG (27-31); MCHC 31.8 g/dL (33-37); MCV 87.7 FL (81-99); MONO# 0.68 X1000 (0.11-0.59); MONO% 7.1 % (1.7-9.3); NEUT# 8.18 X1000 (1.4-6.5); NEUT% 85.7 % (42.2-75.2); PLT 226 X1000 (130-400); RBC 3.83 XMIL (4.2-5.4); RDW 13.6 % (11.5-14.5); WBC 9.55 X1000 (4.8-10.8)
[2019-09-18 07:46] LABS: AGAP 11; ALBUMIN 2.7 g/dL (3.5-5.0); ALKALINE PHOSPHATASE 79 U/L (32-104); BUN 3 mg/dL (8-22); CALCIUM 8.4 mg/dL (8.8-10.2); CHLORIDE 97 mmol/L (98-107); COSMO 266; CREATININE 0.4 mg/dL (0.5-0.9); ESTIMATED GFR > 60; GLUCOSE 84 mg/dL (70-104); GOT 15 U/L (10-30); GPT 5 U/L (10-36); MAGNESIUM 1.8 mg/dL (1.5-2.7); POTASSIUM 3.3 mmol/L (3.5-5.1); SODIUM 135 mmol/L (136-145); TCO2 27 mmol/L (25-35); TOTAL PROTEIN 5.4 g/dL (6.3-8.3)
--- NOTE | 2019-09-18 08:49 | PROVIDER PROGRESS NOTE ---
Progress Note Pulmonary additional note: Dictation to follow Pneumonia and COPD (Moderate on PFT in 2017) Tiny pulmonary nodule (4mm) on CT 07/2019, needs observation given history of lobectomy. Addendum. Consult is for Dr. Doyle.
[2019-09-18 09:01] LABS: LYMPHS 5 % (21-51); MONO 1 % (1-9); MYELOCYTES 1 %; SEGS 93 % (42-75)
[2019-09-18] MEDS: NORVASC PO SCH (09:26)
[2019-09-18] MEDS: CELEXA PO SCH (09:26)
[2019-09-18] MEDS: HYDROMET LIQUID PO PRN ×4 (09:26→18:28)
[2019-09-18] MEDS: TESSALON PO PRN ×2 (09:26→18:28)
[2019-09-18] MEDS: DEPAKOTE ER PO SCH ×2 (09:26→21:27)
[2019-09-18] MEDS: ZOSYN 3.375 GM in NS 50 ML IV SCH ×3 (09:42→21:27)
[2019-09-18 09:44] LABS: ALLEN TEST YES; BE 1.7 mmoll (-3.0-3.0); BLOOD TYPE ARTERIAL; O2(CT) 14.4 mL/dL (15.0-23.0); PCO2(98.6) 38 mmHg (35-45); SAMPLE BLOOD; SAO2 88.1 % (95.0-100.0); pH(98.6) 7.44 (7.35-7.45)
[2019-09-18 09:48] LABS: MODALITY CANNULA; O2HB 85.4 % (95.0-99.0); PO2(98.6) 46 mmHg (60-100)
[2019-09-18] MEDS: SYMBICORT 160/4.5 MICROGM INHALER INH SCH ×2 (09:56→19:58)
[2019-09-18] MEDS: TYLENOL PO PRN (10:16)
[2019-09-18] MEDS: XANAX PO PRN (10:53)
[2019-09-18] MEDS ORDERED: LASIX IV ONE (12:31)
[2019-09-18] MEDS ORDERED: KLOR-CON PO ONE (12:32)
--- NOTE | 2019-09-18 14:21 | PROGRESS NOTE ---
DATE: 09/18/2019 SUBJECTIVE: Patient continues to complain of having significant cough and dyspnea. OBJECTIVE: Vital Signs: Temperature 101.6 degrees, pulse 108 per minute, respiratory rate 20 per minute, blood pressure 132/61, pulse oximetry 91 percent on room air. General: Patient is alert and awake. She appears to be mildly dyspneic. Cardiovascular System: First and second heart sounds are audible without any murmurs or gallops. Respiratory System: Bilateral lung air entry significantly decreased with bilateral expiratory moderate wheeze present on auscultation. Gastrointestinal system: Abdomen is soft and nondistended. Normal bowel sounds are present. DIAGNOSTIC DATA: CBC shows hemoglobin of 10.7 and hematocrit 33.6. Rest of the CBC is nondiagnostic. In comparison, her hemoglobin and hematocrit were 11.3 and 35.6 yesterday. The comprehensive metabolic panel showed potassium level of 3.3. Rest of the comprehensive metabolic panel is nondiagnostic. Arterial blood gases obtained this morning showed pH of 7.44, pCO2 38, and PO2 46. This arterial blood gas was done on 44% oxygen. Chest x-ray obtained this morning showed worsening infiltrates on left side and also having right lung infiltrates. IMPRESSION: Acute hypoxemic respiratory failure with acute chronic obstructive pulmonary disease exacerbation and bilateral pneumonia in this 64-year-old lady who has history of lung cancer and also has hypokalemia on her labs. PLAN: The patient has been getting ceftriaxone 2 g IV q.24 hours along with doxycycline 100 mg IV q.12 hours. We will continue with doxycycline and discontinue ceftriaxone. We will start her on Zosyn 3.375 g IV q.6 hours and continue with bronchodilators along with the supportive care. I am going to give her a single dose of furosemide 40 mg IV since she also appears to be having some fluid overload and give her potassium chloride 40 mEq orally now. The patient has been seeing Dr. Doyle in the past and therefore we are going to ask for pulmonary consultation with Dr. Doyle to further assist us in taking care of this patient who appears to be getting worse at this time. Further recommendations will be given as per outcome of these measures. cc: Jose R Laguna MD
[2019-09-18] MEDS ORDERED: LEVAQUIN 250 MG/D5W 250 MG/50 ML IVPB IV SCH (20:15)
[2019-09-18] MEDS: LEVAQUIN 500 MG/D5W 500 MG/100 ML IVPB IV SCH (21:27)
[2019-09-18] MEDS: ABILIFY PO SCH (21:27)
[2019-09-18] MEDS: SOLU-MEDROL IV SCH (21:27)
[2019-09-18] MEDS: TAMIFLU PO SCH (22:12)
--- NOTE | 2019-09-19 01:58 | PULMONOLOGY CONSULTATION ---
DATE: 09/18/2019 REASON FOR CONSULTATION: Pneumonia and respiratory failure. HISTORY OF PRESENT ILLNESS: Ms. Oviedo is a 64-year-old white female with COPD, status post right upper lobectomy in 2015 for a stage IIA lung cancer, bipolar disorder, who presented to the emergency room with fevers, chills, cough, and body aches. She reports she did receive the influenza vaccine. She does not remember being around any sick contacts. Her oxygen requirements have continued to increase during this hospitalization along with fevers. She has not had significant leukocytosis. She is not producing any sputum. She continues to have a dry cough. PAST MEDICAL HISTORY: 1. Chronic obstructive pulmonary disease. 2. Status post right upper lobectomy followed by adjuvant chemotherapy as per above. 3. Bipolar disorder. 4. Hypertension. 5. Diverticulosis. 6. Osteoporosis. SOCIAL HISTORY: The patient has extensive tobacco history. She had quit smoking after her surgery, but now admits that she is occasionally smoking. She denies vaping. REVIEW OF SYSTEMS: As noted in the HPI. PHYSICAL EXAMINATION: General: Reveals a well-developed, well-nourished white female with mild work of breathing. Vital Signs: Blood pressure 98/58, temperature 100.2 degrees, oxygen saturation 93% on nonrebreather. HEENT: Pupils are equal and reactive. Oropharynx is clear. Neck: Supple. Chest: Reveals crackles bilaterally. Cardiac: S1-S2. Abdomen: Soft. Extremities: Without edema. LABORATORIES: White blood count 9.55, hemoglobin 10.7, platelet count 226,000. Arterial blood gas on 6 L per nasal cannula earlier today, pH 7.44, pCO2 of 38, PO2 of 46. Chemistries, sodium 135, potassium 3.3, chloride 97, bicarbonate 27, BUN 11, creatinine is 3.0. Chest x-ray reveals increasing consolidation and infiltrates bilaterally. IMPRESSION: A 64-year-old with: 1. Acute hypoxemic respiratory failure. 2. Progressive bilateral community-acquired pneumonia. 3. Fevers. 4. Chronic obstructive pulmonary disease. 5. History of lung cancer. DISCUSSION: A 64-year-old with presentation as outlined above. Her symptoms along with a normal white blood count would be consistent with an influenza. Her influenza screen was negative, which may be a true negative or a false negative. She does not have leukocytosis and is not producing sputum making a viral cause higher on the differential. However, the areas of consolidation would be more consistent with a bacterial process. She clearly is clinically ill and is having progressive hypoxemic respiratory failure. RECOMMENDATIONS: 1. Agree with expanding antibiotic regimen as you have done. We will add a quinolone to expand Legionella coverage. 2. Initiate treatment for flu from the history pending repeat rapid flu test. We will consider sending a PCR study. 3. Recommend increasing level of monitoring. We will transfer her to an ICU setting. 4. When patient improves, encourage her to discontinue smoking. cc: MD Jose R Barton MD
[2019-09-19] MEDS: DUONEB (A & A) INH SCH ×4 (03:05→21:28)
[2019-09-19] MEDS: ZOSYN 3.375 GM in NS 50 ML IV SCH ×4 (03:11→20:51)
[2019-09-19 03:34] LABS: ALLEN TEST YES; BE 3.9 mmoll (-3.0-3.0); BLOOD TYPE ARTERIAL; HCO3-(ACT) 27.9 mmoll (20.0-26.0); METHB 0.7 % (0.0-1.5); MODALITY BI PAP; O2(CT) 15.5 mL/dL (15.0-23.0); O2HB 93.2 % (95.0-99.0); PCO2(98.6) 49 mmHg (35-45); PO2(98.6) 63 mmHg (60-100); SAMPLE BLOOD; SAO2 95.5 % (95.0-100.0); THB 11.8 g/dL (11.5-17.4); pH(98.6) 7.39 (7.35-7.45)
[2019-09-19] MEDS: DOXYCYCLINE 100 MG in NS 250 ML IV SCH (04:45)
[2019-09-19 06:27] LABS: BASO# 0.01 X1000 (0.0-0.2); BASO% 0.1 % (0.0-0.8); HEMATOCRIT 35.6 % (37.0-47.0); HEMOGLOBIN 11.2 g/dL (12.0-16.0); IMM GRAN# 0.04 X1000 (0.0-0.04); IMM GRAN% 0.4 % (0.0-0.5); LYMPH# 0.21 X1000 (1.2-3.4); MCH 27.7 PG (27-31); MCHC 31.5 g/dL (33-37); MCV 87.9 FL (81-99); MONO# 0.42 X1000 (0.11-0.59); MONO% 3.9 % (1.7-9.3); MPV 11.2 FL (7.4-10.4); NEUT# 10.04 X1000 (1.4-6.5); NEUT% 93.6 % (42.2-75.2); PLT 258 X1000 (130-400); RBC 4.05 XMIL (4.2-5.4); RDW 13.6 % (11.5-14.5); WBC 10.72 X1000 (4.8-10.8)
[2019-09-19 06:45] LABS: AGAP 15; BUN 7 mg/dL (8-22); CALCIUM 8.6 mg/dL (8.8-10.2); CHLORIDE 98 mmol/L (98-107); COSMO 275; CREATININE 0.4 mg/dL (0.5-0.9); ESTIMATED GFR > 60; GLUCOSE 90 mg/dL (70-104); POTASSIUM 3.5 mmol/L (3.5-5.1); SODIUM 139 mmol/L (136-145); TCO2 26 mmol/L (25-35)
--- NOTE | 2019-09-19 07:16 | Diag Imaging Result Doc PS360 ---
EXAM: CHEST-PORTABLE 09/19/2019 HISTORY: abnormal exam TECHNIQUE: AP portable at 0543 COMMENT: There is diffuse alveolar opacity bilaterally with some sparing of the right upper lobe. This has worsened since 09/18/2019 particularly with regard to the right lower lobe. IMPRESSION: Worsening pulmonary edema/ARDS. Electronically signed by Brody Moise 09/19/2019 7:14 AM
[2019-09-19] MEDS ORDERED: KLOR-CON PO ONE (07:44)
[2019-09-19] MEDS: SYMBICORT 160/4.5 MICROGM INHALER INH SCH ×2 (08:16→21:28)
--- NOTE | 2019-09-19 08:26 | PROGRESS NOTE ---
DATE: 09/19/2019 SUBJECTIVE: Patient denies having any acute complaints this morning, and feels much better as compared to yesterday. OBJECTIVE: Vital Signs: Temperature 97.6 degrees, pulse 84 per minute, respiratory rate 20 per minute, blood pressure 93/79, and pulse oximetry 99% on BiPAP. Cardiovascular: First and second heart sounds are audible without any murmurs or gallops. Respiratory: Bilateral lung air entry is moderately decreased with few basal rales present bilaterally on auscultation, but there were no rhonchi or wheezing. Gastrointestinal: Abdomen is soft and nondistended. Normal bowel sounds are present. Musculoskeletal: No deformities are present. DIAGNOSTIC DATA: CBC shows hemoglobin 11.2 and hematocrit 35.6. This has not changed as compared to the previous 2 days of labs. Chemistry showed potassium level of 3.5 as compared to 3.3 yesterday. Rest of the basic metabolic panel is nondiagnostic. Arterial blood gas is noted pH as 7.39, pCO2 49, and PO2 63 on 100% of oxygen. Chest x-ray obtained this morning showed bilateral pneumonia with ARDS pattern. IMPRESSION: 1. Acute hypoxemic respiratory failure with ARDS secondary to bilateral pneumonia in this 64-year- old lady who has history of lung cancer. 2. Hypokalemia, that has now improved, although her potassium levels are still borderline. 3. History of hypertension, but now having borderline blood pressure readings. PLAN: The patient has been transferred to [facility], and she will continue to get IV antibiotics including Zosyn and levofloxacin as per pulmonology. Dr. Ballard has already seen the patient, who is very familiar with her. The patient will also continue to get supportive care and has been initiated on IV methylprednisolone 40 mg IV every 12 hours and Tamiflu 75 mg orally twice daily for the possibility of having influenza infection. The patient will also continue to get breathing support with BiPAP. I am going to give her single dose of potassium chloride 40 mEq to improve her hypokalemia. We will continue to provide her supportive care, and monitor her electrolytes along with oxygenation and other parameters to monitor her improvement. Further recommendations will be given as per hospital course. cc: Jose R Laguna MD
[2019-09-19] MEDS: TAMIFLU PO SCH ×2 (09:07→20:51)
[2019-09-19] MEDS: DEPAKOTE ER PO SCH ×2 (09:07→20:51)
[2019-09-19] MEDS: TESSALON PO PRN (09:07)
[2019-09-19] MEDS: SOLU-MEDROL IV SCH ×2 (09:08→20:51)
[2019-09-19] MEDS: HYDROMET LIQUID PO PRN ×2 (11:43→21:07)
[2019-09-19] MEDS ORDERED: LASIX IV STA (14:49)
[2019-09-19] MEDS ORDERED: GAMUNEX-C 10% IV ONE (15:00)
[2019-09-19] MEDS ORDERED: DILUENT IV ONE (15:00)
[2019-09-19] MEDS ORDERED: GAMUNEX C IV ONE (15:00)
[2019-09-19] MEDS ORDERED: LASIX IV ONE (20:00)
[2019-09-19] MEDS: LEVAQUIN 500 MG/D5W 500 MG/100 ML IVPB IV SCH (20:50)
[2019-09-19] MEDS: ABILIFY PO SCH (20:51)
[2019-09-19] MEDS: NS 1,000 ML IV SCH (20:52)
[2019-09-19] MEDS: XANAX PO PRN (21:07)
--- NOTE | 2019-09-20 00:42 | PULMONOLOGY PROGRESS NOTE ---
DATE: 09/19/2019 SUBJECTIVE: The patient is currently on BiPAP. She appears to be comfortable. Her temperature curve appears to be decreasing. OBJECTIVE: Vital Signs: Maximum temperature in the last 24 hours is 101.6 degrees, current temperature 97.5 degrees. Blood pressure 109/69, heart rate 76, respiratory rate 24, oxygen saturation 97%. HEENT: Pupils are equal and reactive. Oropharynx appears clear. Neck: Supple. Chest: Reveals crackles bilaterally. Cardiac: S1-S2. Abdomen: Soft. Extremities: Without edema. LABORATORIES: White blood count 10.72, hemoglobin 11.2, platelet count 258,000. Immunoglobulins reveal mild reduction in IgA level, but extreme reduction in IgG at 329 mg/dL. Arterial blood gas on BiPAP reveals a pH 7.39, pCO2 of 49, PO2 of 63. Sodium 139, potassium 3.5, chloride 98, bicarbonate 26, BUN 7, creatinine 0.4. Microbiology reveals no new data. Chest x-ray reveals diffuse bilateral infiltrates with sparing of the right apical region. IMPRESSION: A 64-year-old with: 1. Diffuse bilateral pneumonia. 2. Acute hypoxemic respiratory failure. 3. Chronic obstructive pulmonary disease. 4. Fevers with decreasing temperature curve. 5. Severe reduction in immunoglobulin level. PLAN: 1. Continue antibiotics. Pharmacy recommended discontinuing doxycycline due to overlap coverage. 2. Immunoglobulin replacement today given severe reduction. 3. Continue PVC monitoring. She is marginal for intubation and may require transfer to the ICU if her condition worsens. 4. Encourage patient to discontinue smoking. cc: MD Jose R Barton MD
[2019-09-20] MEDS: HYDROMET LIQUID PO PRN (01:59)
[2019-09-20] MEDS: ZOSYN 3.375 GM in NS 50 ML IV SCH ×4 (02:13→20:10)
[2019-09-20] MEDS: DUONEB (A & A) INH SCH ×4 (03:17→21:36)
[2019-09-20 05:09] LABS: ALLEN TEST YES; BE 5.4 mmoll (-3.0-3.0); BLOOD TYPE ARTERIAL; HCO3-(ACT) 29.1 mmoll (20.0-26.0); METHB 0.8 % (0.0-1.5); O2(CT) 14.1 mL/dL (15.0-23.0); O2HB 96.1 % (95.0-99.0); PO2(98.6) 99 mmHg (60-100); SAMPLE BLOOD; SAO2 98.2 % (95.0-100.0); THB 10.3 g/dL (11.5-17.4); pH(98.6) 7.27 (7.35-7.45)
[2019-09-20 05:12] LABS: MODALITY BI PAP; PCO2(98.6) 74 mmHg (35-45)
[2019-09-20 06:38] LABS: HEMOGLOBIN 10.6 g/dL (12.0-16.0); IMM GRAN# 0.02 X1000 (0.0-0.04); IMM GRAN% 0.2 % (0.0-0.5); LYMPH# 0.25 X1000 (1.2-3.4); LYMPH% 2.9 % (20.5-51.1); MCH 27.8 PG (27-31); MCHC 31.2 g/dL (33-37); MCV 89.2 FL (81-99); MONO# 0.41 X1000 (0.11-0.59); MONO% 4.7 % (1.7-9.3); MPV 10.5 FL (7.4-10.4); NEUT# 7.98 X1000 (1.4-6.5); NEUT% 92.2 % (42.2-75.2); PLT 261 X1000 (130-400); RBC 3.81 XMIL (4.2-5.4); RDW 13.9 % (11.5-14.5); WBC 8.66 X1000 (4.8-10.8)
[2019-09-20 06:55] LABS: AGAP 12; ALB/GLOB RATIO 0.7; ALBUMIN 2.5 g/dL (3.5-5.0); ALKALINE PHOSPHATASE 68 U/L (32-104); BUN 21 mg/dL (8-22); CALCIUM 8.7 mg/dL (8.8-10.2); CHLORIDE 95 mmol/L (98-107); COSMO 273; CREATININE 0.5 mg/dL (0.5-0.9); ESTIMATED GFR > 60; GLUCOSE 98 mg/dL (70-104); GOT 22 U/L (10-30); GPT < 5 U/L (10-36); POTASSIUM 3.4 mmol/L (3.5-5.1); SODIUM 135 mmol/L (136-145); TCO2 28 mmol/L (25-35); TOTAL BILIRUBIN 0.19 mg/dL (0.20-1.00); TOTAL PROTEIN 6.1 g/dL (6.3-8.3)
[2019-09-20 07:20] LABS: MONO 2 % (1-9); SEGS 96 % (42-75)
--- NOTE | 2019-09-20 07:58 | Diag Imaging Result Doc PS360 ---
EXAM: CHEST-PORTABLE INDICATION: ARDS; pneumonia TECHNIQUE: One view COMPARISON: 09/19/2019 FINDINGS: Diffuse airspace consolidation bilaterally throughout both lungs with slight sparing of the right upper lung zone suggesting pulmonary edema/ARDS is essentially stable given slight differences in positioning. No new consolidation is identified. Cardiac silhouette is stable. IMPRESSION: Essentially stable chest. Electronically signed by Chicho Quintana 09/20/2019 7:56 AM
[2019-09-20] MEDS ORDERED: KLOR-CON PO ONE (08:42)
[2019-09-20] MEDS: DEPAKOTE ER PO SCH ×2 (08:46→21:14)
[2019-09-20] MEDS: TAMIFLU PO SCH ×2 (08:46→21:14)
[2019-09-20] MEDS: SOLU-MEDROL IV SCH ×2 (08:46→21:14)
[2019-09-20] MEDS: LOVENOX SUBQ SCH (09:32)
[2019-09-20] MEDS: SYMBICORT 160/4.5 MICROGM INHALER INH SCH ×2 (09:38→21:36)
--- NOTE | 2019-09-20 12:23 | PROGRESS NOTE ---
DATE: 09/20/2019 SUBJECTIVE: A 64-year-old white female patient admitted with chest congestion, cough, shortness of breath and wheezing. Patient also had generalized weakness and body ache. Patient is vague and poor historian. Her initial chest x-ray did reveal left-sided pneumonia. Patient is on IV antibiotics, pulmonary toilet, bronchodilator treatment. Linking Machine Operator following patient with us. Patient is still having chest congestion, cough, wheezing, shortness of breath. Her oral intake is poor. Mild nausea. Admission history and physical noted. 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 OBJECTIVE: Vital Signs: Blood pressure 97/59, pulse 68, respiration 18, temperature 98 degrees. Skin: No rash or petechiae. HEENT: Head atraumatic, normocephalic. [place] conjunctivae. Anicteric sclerae. Extraocular muscle movement normal. Fundus cannot be penetrated. Good oral hygiene. No tonsillopharyngeal congestion or exudate. Ears and nose benign. Neck: Supple. No JVD, thyromegaly or lymphadenopathy. Chest: Bibasilar crepitation. Bilateral occasional wheezing. Cardiovascular: S1 and S2 heard. No gallop or thrill. Abdomen: Soft, globular. Bowel sounds present. Bladder was palpable. Extremities: No cyanosis, clubbing. No acute DVT. Central Nervous System: Alert, awake. Able to move all 4 limbs. CONSIDERATION: Patient admitted with bronchopneumonia, acute hypoxemic respiratory failure, COPD, history of bipolar disorder, hypertension, diverticulosis. LABORATORY STUDIES: Patient's lab data done today: WBC 8.66, hemoglobin 10.6, hematocrit 34, platelet count 261,000. Blood gas done, pH 7.27, pCO2 74, pO2 was 99. Her potassium was 3.4. Patient's lab data also revealed acute hypoxemic and also now hypercarbic respiratory failure, hypokalemia. PLAN: Appreciate Linking Machine Operator's help managing patient. Will continue pulmonary toilet, IV antibiotics, close observation. Patient is on IV steroid and BiPAP, which will continue. Plan discussed with patient and she is in agreement. cc: MD Jose R Roberto MD
[2019-09-20 14:02] LABS: ALLEN TEST NO; BE 4.3 mmoll (-3.0-3.0); BLOOD TYPE ARTERIAL; HCO3-(ACT) 28.3 mmoll (20.0-26.0); METHB 1.4 % (0.0-1.5); O2HB 96.9 % (95.0-99.0); PO2(98.6) 178 mmHg (60-100); SAMPLE BLOOD; SAO2 99.2 % (95.0-100.0); SRATE 15 BPM; THB 12.2 g/dL (11.5-17.4); pH(98.6) 7.31 (7.35-7.45)
[2019-09-20 14:03] LABS: MODALITY BI PAP
[2019-09-20 14:04] LABS: PCO2(98.6) 64 mmHg (35-45)
[2019-09-20] MEDS: NS 1,000 ML IV SCH (21:14)
[2019-09-20] MEDS: LEVAQUIN 500 MG/D5W 500 MG/100 ML IVPB IV SCH (21:14)
[2019-09-20] MEDS: ABILIFY PO SCH (21:14)
--- NOTE | 2019-09-21 00:04 | PULMONOLOGY PROGRESS NOTE ---
DATE: 09/20/2019 SUBJECTIVE: The patient is awake, alert. She is currently on BiPAP. She reports she feels significantly better today than yesterday. OBJECTIVE: Vital Signs: The patient has been afebrile for the last 24 hours. Blood pressure 102/66, heart rate 74, respiratory rate 20, oxygen saturation 100%. HEENT: Pupils are equal and reactive. Oropharynx appears clear. Neck: Supple. Chest: Reveals diminished breath sounds bilaterally with bilateral crackles. Cardiac: Regular rate. Normal S1. Normal S2. Abdomen: Soft. Extremities: Without edema. LABORATORIES: Arterial blood gas #1: pH 7.27, pCO2 of 74, PO2 of 99. Arterial blood gas #2: pH 7.31, pCO2 of 64, pO2 of 178. Chest x-ray reveals no change. IMPRESSION: A 64-year-old with: 1. Diffuse bilateral pneumonia. 2. Acute hypoxemic respiratory failure. 3. Chronic obstructive pulmonary disease. 4. Fevers with decreasing temperature curve. 5. Severe immunoglobulin deficiency. 6. Ongoing tobacco use. DISCUSSION: A 64-year-old with problems outlined above. Radiographically, she has had no significant change, but her oxygen requirements appear to be decreasing. Her temperature curve appears to have normalized. She feels better and is requesting food. RECOMMENDATION: 1. Advance diet. She was encouraged to limit p.o. intake to prevent nausea and vomiting. 2. Cycle non-rebreather and BiPAP as necessary. 3. Continue PVC monitoring. She may require transfer to the ICU, but clinically she appears to have stabilized. 4. Encourage smoking cessation. cc: MD Jose R Barton MD
[2019-09-21] MEDS: ZOSYN 3.375 GM in NS 50 ML IV SCH ×4 (01:52→20:06)
[2019-09-21] MEDS: DUONEB (A & A) INH SCH ×4 (03:22→22:25)
[2019-09-21] MEDS: XANAX PO PRN (04:25)
[2019-09-21 05:33] LABS: ALLEN TEST YES; BE 3.5 mmoll (-3.0-3.0); BLOOD TYPE ARTERIAL; HCO3-(ACT) 27.6 mmoll (20.0-26.0); O2HB 97.8 % (95.0-99.0); PO2(98.6) 254 mmHg (60-100); SAMPLE BLOOD; SAO2 99.7 % (95.0-100.0); pH(98.6) 7.33 (7.35-7.45)
[2019-09-21 05:36] LABS: MODALITY BI PAP; PCO2(98.6) 61 mmHg (35-45)
[2019-09-21 06:39] LABS: EOS# 0.04 X1000 (0.0-0.7); EOS% 0.5 % (0.0-10.0); HEMATOCRIT 36.1 % (37.0-47.0); HEMOGLOBIN 11.2 g/dL (12.0-16.0); IMM GRAN# 0.03 X1000 (0.0-0.04); IMM GRAN% 0.4 % (0.0-0.5); LYMPH# 0.21 X1000 (1.2-3.4); LYMPH% 2.5 % (20.5-51.1); MCH 27.7 PG (27-31); MCV 89.4 FL (81-99); MONO# 0.39 X1000 (0.11-0.59); MONO% 4.6 % (1.7-9.3); MPV 10.2 FL (7.4-10.4); NEUT# 7.74 X1000 (1.4-6.5); PLT 223 X1000 (130-400); RBC 4.04 XMIL (4.2-5.4); RDW 13.9 % (11.5-14.5); WBC 8.41 X1000 (4.8-10.8)
[2019-09-21 07:40] LABS: AGAP 11; ALB/GLOB RATIO 0.8; ALBUMIN 2.7 g/dL (3.5-5.0); ALKALINE PHOSPHATASE 82 U/L (32-104); BUN 29 mg/dL (8-22); CALCIUM 9.4 mg/dL (8.8-10.2); CHLORIDE 93 mmol/L (98-107); COSMO 274; CREATININE 0.5 mg/dL (0.5-0.9); ESTIMATED GFR > 60; GLUCOSE 99 mg/dL (70-104); GOT 20 U/L (10-30); GPT 6 U/L (10-36); POTASSIUM 3.8 mmol/L (3.5-5.1); SODIUM 134 mmol/L (136-145); TCO2 30 mmol/L (25-35); TOTAL PROTEIN 6.3 g/dL (6.3-8.3)
--- NOTE | 2019-09-21 07:48 | Diag Imaging Result Doc PS360 ---
EXAM: CHEST-PORTABLE HISTORY: abnormal exam TECHNIQUE: Single view COMPARISON: 09/20/2019 FINDINGS: Poor inspiratory effort. There are dense diffuse infiltrates. No cardiomegaly. No pleural effusions identified. The right hemidiaphragm is elevated. IMPRESSION: No interval improvement. Electronically signed by Glen Batista 09/21/2019 7:46 AM
[2019-09-21] MEDS: SOLU-MEDROL IV SCH ×2 (08:21→20:06)
[2019-09-21] MEDS: TAMIFLU PO SCH ×2 (08:21→20:48)
[2019-09-21] MEDS: DEPAKOTE ER PO SCH ×2 (08:21→20:48)
[2019-09-21] MEDS: LOVENOX SUBQ SCH (08:21)
[2019-09-21] MEDS: SYMBICORT 160/4.5 MICROGM INHALER INH SCH ×2 (10:00→20:01)
--- NOTE | 2019-09-21 10:49 | PROGRESS NOTE ---
DATE: 09/21/2019 SUBJECTIVE: Ms. Oviedo is doing fair. The patient still has significant cough with scanty sputum production. She gets short of breath easily, still requiring BiPAP. Oral intake is fair to poor. Complaining of urinary frequency. Chest x-ray did not show any improvement. Denied abdominal pain, at times nausea, no vomiting. The patient does have immunoglobulin deficiency, bronchopneumonia, mood disorder, multiple medical problems, pulmonary progress not reviewed.Objective: Vital signs: Blood pressure 102/80, pulse 79 respirations 22, temperature 96.9 degrees. Neck: Neck is supple. No JVD, thyromegaly or lymphadenopathy. No pharyngeal congestion. Lungs: Bilateral inspiratory crepitations. CVS: S1 and S2 heard. Abdomen: Soft, globular. Bowel sounds present. Bladder is palpable. Extremities: No cyanosis, clubbing. No acute DVT. ICT MANAGERS: Alert, awake able to move all 4 limbs. LABORATORY DATA: Done today: WBC count 8.41, hemoglobin 11.2, hematocrit 36.1, platelet count 223,000. Her blood gas pH 7.33 pCO2 61, PO2 254 this was done on BiPAP. Electrolytes: Potassium 3.8, sodium 134, the rest of the electrolytes result reviewed. CONSIDERATION: 1. Acute hypoxemic and hypercarbic respiratory failure 2. Bronchopneumonia. 3. Immunoglobulin deficiency. 4. Mood disorder. 5. Chronic obstructive pulmonary disease exacerbation. 6. Possibility of urinary obstruction cannot be ruled out. 7. History of hypertension. Diverticulosis. PLAN: 1. We will put [place] catheter. 2. Continue rest of the treatment. 3. Close observation. 4. Overall plan discussed with the patient and she is in agreement. cc: MD Jose R Roberto MD
[2019-09-21 11:45] LABS: URINE SOURCE CATH
[2019-09-21 11:52] LABS: BILIRUBIN URINE NEGATIVE (NEGATIVE); BLOOD URINE NEGATIVE (NEGATIVE); COLOR YELLOW; GLUCOSE URINE NEGATIVE (NEGATIVE); KETONE URINE NEGATIVE (NEGATIVE); LEUKOCYTES URINE NEGATIVE (NEGATIVE); NITRITE URINE NEGATIVE (NEGATIVE); PH URINE 5.5; PROTEIN URINE NEGATIVE (NEGATIVE); TURBIDITY URINE CLEAR (CLEAR); UR EPITHELIAL CELLS <10 /HPF (<10); URINE BACTERIA NEGATIVE /HPF; URINE RBC <10 /HPF (<10); URINE WBC <10 /HPF (<10); UROBILINOGEN URINE NORMAL (NORMAL)
[2019-09-21] MEDS: NS 1,000 ML IV SCH (20:05)
--- NOTE | 2019-09-21 20:37 | PULMONOLOGY PROGRESS NOTE ---
DATE: 09/21/2019 SUBJECTIVE: The patient is awake and alert. She reports her shortness of breath has diminished. OBJECTIVE: Vital Signs: The patient has been afebrile for the last 24 hours. BP 116/66, heart rate 80, respiratory rate 19, oxygen saturation 100%. HEENT: Pupils are equal and reactive. Oropharynx appears clear. Neck: Supple. Chest: Reveals crackles bilaterally. Cardiac: S1- S2. Abdomen: Is soft. Extremities: Without edema. LABORATORIES: Microbiology reveals no new data. Arterial blood gas reveals a pH of 7.33, pCO2 of 61, PO2 of 254. White blood count 8.41, hemoglobin 11.1, platelet count 223,000. Repeat immunoglobulin level is pending. Chest x-ray reveals dense bilateral infiltrates without improvement. IMPRESSION: A 64-year-old with 1. Diffuse bilateral pneumonia. 2. Acute hypoxemic respiratory failure. 3. Chronic obstructive pulmonary disease. 4. Resolving fevers. 5. Severe immunoglobulin deficiency status post replacement. 6. Ongoing limited tobacco use/cigarette/nicotine addiction at the time of admission. DISCUSSION: A 64-year-old with problems outlined above. Radiographic infiltrates remain. Her oxygen requirements continue to decline. PLAN: 1. Diet as tolerated. 2. Continue to cycle BiPAP and nonrebreather. 3. Continue PVC monitoring. Hopefully she will not require transfer to the ICU given the clinical improvement. 4. Encourage smoking cessation. cc: MD Jose R Barton MD
[2019-09-21] MEDS: ABILIFY PO SCH (20:48)
[2019-09-21] MEDS: LEVAQUIN 500 MG/D5W 500 MG/100 ML IVPB IV SCH (20:48)
[2019-09-22] MEDS: ZOSYN 3.375 GM in NS 50 ML IV SCH ×4 (01:47→20:15)
[2019-09-22] MEDS: DUONEB (A & A) INH SCH ×4 (03:46→23:17)
[2019-09-22 05:20] LABS: ALLEN TEST YES; BE 12.5 mmoll (-3.0-3.0); BLOOD TYPE ARTERIAL; HCO3-(ACT) 34.7 mmoll (20.0-26.0); METHB 0.8 % (0.0-1.5); O2(CT) 15.8 mL/dL (15.0-23.0); O2HB 98.1 % (95.0-99.0); PO2(98.6) 159 mmHg (60-100); SAMPLE BLOOD; SAO2 100.7 % (95.0-100.0); SRATE 15 BPM; THB 11.2 g/dL (11.5-17.4)
[2019-09-22 05:22] LABS: PCO2(98.6) 64 mmHg (35-45)
[2019-09-22 05:23] LABS: MODALITY BI PAP
[2019-09-22] MEDS: SYMBICORT 160/4.5 MICROGM INHALER INH SCH ×2 (09:20→23:18)
[2019-09-22] MEDS: DEPAKOTE ER PO SCH ×2 (09:37→20:14)
[2019-09-22] MEDS: SOLU-MEDROL IV SCH ×2 (09:37→20:14)
[2019-09-22] MEDS: LOVENOX SUBQ SCH (09:37)
[2019-09-22] MEDS: TAMIFLU PO SCH ×2 (09:38→20:14)
[2019-09-22] MEDS: XANAX PO PRN ×2 (09:42→20:23)
--- NOTE | 2019-09-22 17:38 | PROGRESS NOTE ---
DATE: 09/22/2019 SUBJECTIVE: The patient feels well today and denies having any acute complaints. She actually asked me if she could go home today. OBJECTIVE: Vital Signs: Temperature 97.8 degrees, pulse 79 per minute, respiratory rate 23 per minute, blood pressure 129/78, pulse oximetry 100% on BiPAP. Cardiovascular System: First and second heart sounds are audible without any murmurs or gallops. Respiratory System: Bilateral lung air entry is moderately decreased but there are no rales or rhonchi present on auscultation. Gastrointestinal System: Abdomen is soft and nondistended. Normal bowel sounds are present. DIAGNOSTIC DATA: Arterial blood gases obtained this morning showed pH of 7.40, pCO2 64, and PO2 159 on 80% oxygen. Chest x-ray obtained yesterday showed poor inspiratory effort with bilateral dense diffuse infiltrates, but I believe there is some slight improvement when compared to her previous chest x-rays, although no interval improvement was reported by Radiology. IMPRESSION: Acute hypoxemic respiratory failure on chronic hypoxemic respiratory failure with acute respiratory distress syndrome pattern secondary to bilateral pneumonia in this 64-year-old lady who also has severe immunoglobulin deficiency. PLAN: We will continue with monitoring PVC and will continue with Zosyn along with levofloxacin as per Pulmonology. She will also continue with methylprednisolone IV along with Tamiflu for the possibility of having coexisting influenza infection. We will continue with supportive care and follow the hospital course. cc: Jose R Laguna MD
[2019-09-22] MEDS: LEVAQUIN 500 MG/D5W 500 MG/100 ML IVPB IV SCH (20:14)
[2019-09-22] MEDS: ABILIFY PO SCH (20:14)
--- NOTE | 2019-09-22 20:22 | PULMONOLOGY PROGRESS NOTE ---
DATE: 09/22/2019 SUBJECTIVE: The patient is awake, alert and conversant. She is currently sitting in a bedside chair while on BiPAP while her bed is being changed. She reports she feels significantly better. She has been cycling between the BiPAP and the non-rebreather. OBJECTIVE: Vital Signs: The patient has been afebrile for the last 24 hours. Blood pressure is 128/71, heart rate 77, respiratory rate 22, oxygen saturation is 99% on non-rebreather and 94% on BiPAP. HEENT: Pupils are equal and reactive. Oropharynx is clear. Neck: Supple. Chest: Reveals good air entry bilaterally with occasional crackles. Cardiac: S1, S2. Abdomen: Soft. Extremities: Without edema. LABORATORY DATA: No new chemistries or CBC today. Arterial blood gas reveals a pH of 7.40, pCO2 of 64, pO2 of 159 on 80% FiO2. IMPRESSION: A 64-year-old with: 1. Diffuse bilateral pneumonia. 2. Acute hypoxemic respiratory failure. 3. Chronic obstructive pulmonary disease. 4. Severe immunoglobulin deficiency. 5. Occasional tobacco use prior to admission. DISCUSSION: A 64-year-old with the problems outlined above. Clinically she continues to improve. She reports her symptoms are decreasing. She is asking to go home. PLAN: 1. Continue current antibiotic regimen. 2. Continue to cycle BiPAP and non-rebreather. 3. Chest x-ray tomorrow as ordered by Dr. Laguna. cc: MD Jose R Barton MD
[2019-09-23] MEDS: DUONEB (A & A) INH SCH ×4 (03:45→22:48)
[2019-09-23] MEDS: ZOSYN 3.375 GM in NS 50 ML IV SCH ×4 (03:53→21:17)
[2019-09-23 06:44] LABS: AGAP 12; ALB/GLOB RATIO 0.8; ALBUMIN 2.6 g/dL (3.5-5.0); ALKALINE PHOSPHATASE 79 U/L (32-104); BUN 14 mg/dL (8-22); CALCIUM 9.3 mg/dL (8.8-10.2); CHLORIDE 98 mmol/L (98-107); COSMO 288; CREATININE 0.4 mg/dL (0.5-0.9); ESTIMATED GFR > 60; GLUCOSE 104 mg/dL (70-104); GOT 18 U/L (10-30); GPT 5 U/L (10-36); MAGNESIUM 2.1 mg/dL (1.5-2.7); PHOSPHORUS 1.6 mg/dL (2.7-4.5); POTASSIUM 3.7 mmol/L (3.5-5.1); SODIUM 144 mmol/L (136-145); TCO2 34 mmol/L (25-35); TOTAL BILIRUBIN 0.29 mg/dL (0.20-1.00); TOTAL PROTEIN 5.7 g/dL (6.3-8.3)
[2019-09-23] MEDS ORDERED: LASIX IV ONE ×2 (07:17→21:29)
--- NOTE | 2019-09-23 07:29 | Diag Imaging Result Doc PS360 ---
CHEST-PORTABLE - 09/23/2019 INDICATION: Pneumonia COMPARISON: 09/21/2019 FINDINGS: Stable dense, diffuse infiltrates bilaterally. Heart size remains normal. No pneumothorax or large pleural effusion. IMPRESSION: No change from prior. Electronically signed by Chinmay Vaz 09/23/2019 7:27 AM
[2019-09-23] MEDS: SYMBICORT 160/4.5 MICROGM INHALER INH SCH ×2 (09:01→22:48)
--- NOTE | 2019-09-23 09:02 | PROGRESS NOTE ---
DATE: 09/23/2019 SUBJECTIVE: The patient denies having any acute complaints this morning, and states that she has been feeling better. OBJECTIVE: Vital Signs: Temperature 97.7 degrees, pulse 86 per minute, respiratory rate 19 per minute, blood pressure 131/69, pulse oximetry 94% on 100% nonrebreather mask. Cardiovascular: First and second heart sounds are audible, without any murmurs or gallops. Respiratory: Bilateral lung air entry is moderate, although improved as compared to the previous days. Bilateral lower lung crackles are present. No wheeze is noted. Gastrointestinal: Abdomen is soft and nondistended. It is nontender on palpation. Normal bowel sounds are present. DIAGNOSTIC DATA: CBC and comprehensive metabolic panel are nondiagnostic, except for low albumin levels of 2.6. Arterial blood gas obtained at 80% FiO2 yesterday showed pH of 7.40, pCO2 of 64, and PO2 of 159. Chest x-ray obtained this morning was unchanged compared to the previous chest x- rays, and showed bilateral diffuse infiltrates. IMPRESSION: 1. Acute on chronic hypoxemic respiratory failure with acute respiratory distress syndrome pattern secondary to bilateral pneumonia. 2. Severe immunoglobulin deficiency. 3. Chronic tobacco abuse. PLAN: Will continue monitoring in PVC, and continue with Zosyn along with levofloxacin. We will continue with methylprednisolone IV, along with supportive care. I am going to give her a single dose of furosemide 60 mg IV to see that we improve her oxygenation further. Pulmonology is following the case. Further recommendations are going to be as per hospital course. cc: Jose R Laguna MD
[2019-09-23] MEDS: DEPAKOTE ER PO SCH ×2 (09:21→21:16)
[2019-09-23] MEDS: SOLU-MEDROL IV SCH ×2 (09:21→21:16)
[2019-09-23] MEDS: TAMIFLU PO SCH ×2 (09:21→21:16)
[2019-09-23] MEDS: LOVENOX SUBQ SCH (09:21)
[2019-09-23] MEDS: TYLENOL PO PRN (10:26)
[2019-09-23] MEDS: NS 1,000 ML IV SCH (11:14)
[2019-09-23] MEDS: LEVAQUIN PO SCH (13:01)
[2019-09-23] MEDS: XANAX PO PRN ×2 (13:03→21:16)
[2019-09-23] MEDS: ABILIFY PO SCH (21:16)
--- NOTE | 2019-09-24 01:03 | PULMONOLOGY PROGRESS NOTE ---
DATE: 09/23/2019 SUBJECTIVE: The patient is awake, alert and conversant. She is on a nonrebreather mask. She denies shortness of breath. She reports she continues to feel a little better each day and continues to ask when she can go home. OBJECTIVE: Vital Signs: The patient has been afebrile for the last 24 hours. Blood pressure is 145/58, heart rate 88, respiratory rate 28, oxygen saturation 97% on non-rebreather. HEENT: Pupils are equal and reactive. Oropharynx appears clear. Neck: Supple. Chest: Reveals crackles bilaterally. Cardiac: S1, S2. Abdomen: Soft. Extremities: Without edema. LABORATORY DATA: Chest x-ray continues to reveal diffuse bilateral infiltrates without improvement. Sodium 144, potassium 3.7, chloride 98, bicarbonate 34, BUN 14, creatinine 0.4, phosphorus 1.6. IMPRESSION: A 64-year-old with: 1. Diffuse bilateral pneumonia. 2. Hypoxemic respiratory failure. 3. Chronic obstructive pulmonary disease. 4. Severe immunoglobulin deficiency. 5. Tobacco use/nicotine addiction. DISCUSSION: A 64-year-old with the problems outlined above. Her chest x-ray continued to reveal diffuse bilateral infiltrates, but clinically she continues to improve. PLAN: 1. Continue antibiotics. We will discontinue Tamiflu. 2. Continue to cycle BiPAP, non-rebreather, and Venturi mask. 3. Agree with diuretic trial. 4. We will mobilize the patient as tolerated. cc: MD Jose R Barton MD
[2019-09-24] MEDS: ZOSYN 3.375 GM in NS 50 ML IV SCH ×6 (03:18→21:49)
[2019-09-24] MEDS: DUONEB (A & A) INH SCH ×4 (03:32→21:26)
[2019-09-24 06:42] LABS: BASO# 0.03 X1000 (0.0-0.2); BASO% 0.4 % (0.0-0.8); EOS# 0.02 X1000 (0.0-0.7); EOS% 0.2 % (0.0-10.0); HEMATOCRIT 41.7 % (37.0-47.0); HEMOGLOBIN 12.7 g/dL (12.0-16.0); IMM GRAN# 0.28 X1000 (0.0-0.04); IMM GRAN% 3.3 % (0.0-0.5); LYMPH# 0.45 X1000 (1.2-3.4); LYMPH% 5.3 % (20.5-51.1); MCH 27.6 PG (27-31); MCHC 30.5 g/dL (33-37); MCV 90.7 FL (81-99); MONO# 0.21 X1000 (0.11-0.59); MONO% 2.5 % (1.7-9.3); MPV 10.4 FL (7.4-10.4); NEUT# 7.54 X1000 (1.4-6.5); NEUT% 88.3 % (42.2-75.2); PLT 158 X1000 (130-400); RDW 14.4 % (11.5-14.5); WBC 8.53 X1000 (4.8-10.8)
[2019-09-24 06:44] LABS: AGAP 9; BUN 11 mg/dL (8-22); CALCIUM 8.9 mg/dL (8.8-10.2); CHLORIDE 88 mmol/L (98-107); COSMO 286; CREATININE 0.4 mg/dL (0.5-0.9); ESTIMATED GFR > 60; GLUCOSE 100 mg/dL (70-104); SODIUM 144 mmol/L (136-145); TCO2 47 mmol/L (25-35)
[2019-09-24] MEDS ORDERED: KLOR-CON PO ONE ×2 (07:13→15:00)
[2019-09-24 07:19] LABS: LYMPHS 7 % (21-51); MONO 2 % (1-9); SEGS 91 % (42-75)
--- NOTE | 2019-09-24 07:30 | Diag Imaging Result Doc PS360 ---
EXAM: CHEST-PORTABLE INDICATION: abnormal exam TECHNIQUE: One view COMPARISON: 09/23/2019 FINDINGS: Dense bilateral interstitial and airspace infiltrates are unchanged. No new consolidations are identified. Cardiac silhouette is stable. IMPRESSION: Stable chest. Electronically signed by Chicho Quintana 09/24/2019 7:28 AM
[2019-09-24] MEDS: SYMBICORT 160/4.5 MICROGM INHALER INH SCH ×2 (08:02→21:26)
--- NOTE | 2019-09-24 08:19 | PROGRESS NOTE ---
DATE: 09/24/2019 SUBJECTIVE: Patient denies having any acute complaints this morning and feels well. OBJECTIVE: Vital Signs: Temperature 99.2 degrees, pulse 86 per minute, respiratory rate 21 per minute, blood pressure 141/69, pulse oximetry 97% with Venturi mask. Cardiovascular: First and second heart sounds are audible without any murmurs or gallops. Respiratory: Bilateral lung air entry is good with a few bilateral rales present on auscultation. Gastrointestinal: Abdomen is soft and nondistended. Normal bowel sounds are present. DIAGNOSTIC DATA: CBC is nondiagnostic and basic metabolic panel shows a potassium level of 3.0. Rest of the BMP is nondiagnostic. Arterial blood gases are pending at this time and chest x-ray shows diffuse bilateral infiltrates but they do appear slightly better as compared to previous few days' chest x-rays. IMPRESSION: 1. Acute on chronic hypoxemic respiratory failure with bilateral pneumonia. 2. Severe immunoglobulin deficiency. 3. Hypokalemia. 4. Chronic tobacco abuse. PLAN: The patient will be continued with Zosyn and levofloxacin intravenously and we will continue to give her supplemental oxygen along with the rest of supportive care. Her potassium levels are only 3.0 and therefore I am going to give her oral potassium supplements. We will continue to monitor her while she is hospitalized and start physical therapy since she appears to be very deconditioned. Once she gets better, she will probably be discharged to an inpatient rehab facility. cc: Jose R Laguna MD MTDD
[2019-09-24] MEDS: SOLU-MEDROL IV SCH ×2 (08:54→20:31)
[2019-09-24] MEDS: LEVAQUIN PO SCH (08:54)
[2019-09-24] MEDS: LOVENOX SUBQ SCH (08:54)
[2019-09-24] MEDS: DEPAKOTE ER PO SCH ×2 (08:55→20:30)
[2019-09-24 09:36] LABS: ALLEN TEST YES; BE 26.4 mmoll (-3.0-3.0); BLOOD TYPE ARTERIAL; HCO3-(ACT) 45.4 mmoll (20.0-26.0); METHB 1.2 % (0.0-1.5); O2HB 93.4 % (95.0-99.0); PO2(98.6) 62 mmHg (60-100); SAMPLE BLOOD; SAO2 96.1 % (95.0-100.0); THB 13.7 g/dL (11.5-17.4); pH(98.6) 7.55 (7.35-7.45)
[2019-09-24 09:39] LABS: MODALITY NRB; PCO2(98.6) 61 mmHg (35-45)
[2019-09-24] MEDS: NS 1,000 ML IV SCH (11:44)
[2019-09-24] MEDS: XANAX PO PRN ×2 (14:00→20:30)
[2019-09-24] MEDS ORDERED: LASIX IV ONE (17:09)
[2019-09-24] MEDS: NEUTRA-PHOS PO SCH (17:47)
[2019-09-24] MEDS: DIAMOX IV SCH (17:56)
[2019-09-24] MEDS ORDERED: STERILE WATER INJ. ONE (18:04)
[2019-09-24] MEDS: ABILIFY PO SCH (20:30)
[2019-09-25] MEDS: DIAMOX IV SCH (01:13)
[2019-09-25] MEDS ORDERED: STERILE WATER INJ. ONE (01:20)
[2019-09-25] MEDS: DUONEB (A & A) INH SCH ×4 (03:35→22:05)
[2019-09-25] MEDS: ZOSYN 3.375 GM in NS 50 ML IV SCH ×5 (04:26→21:46)
[2019-09-25] MEDS ORDERED: LASIX IV ONE ×2 (05:00→16:47)
[2019-09-25 06:34] LABS: ALLEN TEST YES; BE 12.4 mmoll (-3.0-3.0); BLOOD TYPE ARTERIAL; HCO3-(ACT) 34.5 mmoll (20.0-26.0); METHB 0.8 % (0.0-1.5); O2(CT) 18.4 mL/dL (15.0-23.0); O2HB 93.7 % (95.0-99.0); PCO2(98.6) 48 mmHg (35-45); PO2(98.6) 66 mmHg (60-100); SAMPLE BLOOD
[2019-09-25 06:35] LABS: MODALITY NRB
--- NOTE | 2019-09-25 06:56 | Diag Imaging Result Doc PS360 ---
CHEST-PORTABLE - 09/25/2019 INDICATION: abnormal exam COMPARISON: 09/24/2019 FINDINGS: Stable dense, diffuse, interstitial infiltrates bilaterally. Heart size remains grossly normal. Lung volumes remain low with right hemidiaphragm elevation. IMPRESSION: No change from prior. Electronically signed by Chinmay Vaz 09/25/2019 6:53 AM
[2019-09-25 07:15] LABS: BASO# 0.07 X1000 (0.0-0.2); BASO% 0.6 % (0.0-0.8); HEMATOCRIT 43.1 % (37.0-47.0); HEMOGLOBIN 13.3 g/dL (12.0-16.0); IMM GRAN# 0.86 X1000 (0.0-0.04); IMM GRAN% 7.7 % (0.0-0.5); LYMPH# 0.77 X1000 (1.2-3.4); LYMPH% 6.9 % (20.5-51.1); MCH 27.8 PG (27-31); MCHC 30.9 g/dL (33-37); MONO# 0.28 X1000 (0.11-0.59); MONO% 2.5 % (1.7-9.3); MPV 10.3 FL (7.4-10.4); NEUT# 9.15 X1000 (1.4-6.5); NEUT% 82.3 % (42.2-75.2); PLT 157 X1000 (130-400); RBC 4.79 XMIL (4.2-5.4); RDW 14.8 % (11.5-14.5); WBC 11.13 X1000 (4.8-10.8)
--- NOTE | 2019-09-25 07:24 | PULMONOLOGY PROGRESS NOTE ---
DATE: 09/24/2019 SUBJECTIVE: The patient was sleeping upon arrival. She is resting comfortably. She is currently on non-rebreather. OBJECTIVE: Vital Signs: The patient has been afebrile for the last 24 hours. Blood pressure 140/71, heart rate 82, respiratory rate 18, and oxygen saturation 92%. HEENT: Pupils are equal and reactive. Oropharynx appears clear. Neck: Supple. Lungs: Chest reveals crackles bilaterally. Cardiac: S1-S2. Abdomen: Soft. Extremities: Without edema. LABORATORIES: White blood count 8.53, hemoglobin 12.7, and platelet count 158,000. Arterial blood gas reveals a pH 7.55, pCO2 of 61, PO2 of 62. Chest x-ray reveals diffuse bilateral infiltrates without change. IMPRESSION: 1. A 64-year-old with diffuse bilateral pneumonia with acute respiratory distress syndrome. 2. Hypoxemic respiratory failure. 3. Chronic obstructive pulmonary disease. 4. Immunoglobulin deficiency status post replacement. 5. Tobacco use/nicotine addiction. DISCUSSION: A 64-year-old with problems outlined above. Her radiograph continues to demonstrate significant bilateral infiltrates, but clinically she continues to improve. She is significantly alkalotic. PLAN: 1. Continue antibiotics. 2. We will initiate 2 doses of acetazolamide today with her alkalosis. 3. Wean oxygen as tolerated. 4. Discussions for LTAC placement noted. 5. No bed currently available. cc: MD Jose R Barton MD
[2019-09-25 07:38] LABS: AGAP 15; BUN 16 mg/dL (8-22); CALCIUM 9.4 mg/dL (8.8-10.2); CHLORIDE 94 mmol/L (98-107); COSMO 285; CREATININE 0.5 mg/dL (0.5-0.9); ESTIMATED GFR > 60; GLUCOSE 102 mg/dL (70-104); POTASSIUM 3.1 mmol/L (3.5-5.1); SODIUM 142 mmol/L (136-145); TCO2 33 mmol/L (25-35)
[2019-09-25] MEDS: SYMBICORT 160/4.5 MICROGM INHALER INH SCH ×2 (07:43→22:05)
[2019-09-25] MEDS: NEUTRA-PHOS PO SCH (08:23)
[2019-09-25] MEDS: XANAX PO PRN ×2 (08:26→20:52)
[2019-09-25] MEDS: HYDROMET LIQUID PO PRN ×3 (08:26→20:51)
[2019-09-25] MEDS: CELEXA PO SCH (08:27)
[2019-09-25] MEDS: LEVAQUIN PO SCH (08:27)
[2019-09-25] MEDS: DEPAKOTE ER PO SCH ×2 (08:27→20:51)
[2019-09-25] MEDS: SOLU-MEDROL IV SCH ×2 (08:27→20:51)
[2019-09-25] MEDS: LOVENOX SUBQ SCH (08:27)
[2019-09-25] MEDS: KLOR-CON PO SCH ×2 (13:28→20:51)
--- NOTE | 2019-09-25 14:07 | PROGRESS NOTE ---
DATE: 09/25/2019 SUBJECTIVE: Patient denies having any acute complaints this morning. OBJECTIVE: Vital Signs: Temperature 97.5 degrees, pulse 87 per minute, respiratory rate 14 per minute, blood pressure 114/65, pulse oximetry 100% on non-rebreather oxygen mask. Cardiovascular System: First and second heart sounds are audible without any murmurs or gallops. Respiratory System: Bilateral lung air entry is good without any wheezing, but there are bilateral few crackles present on auscultation. Gastrointestinal system: Abdomen is soft and nondistended. Normal bowel sounds are present. DIAGNOSTIC DATA: CBC shows WBC count of 11.13 with 82.3% neutrophils. Rest of the CBC is nondiagnostic. Chemistry showed potassium levels of 3.1. Rest of the basic metabolic panel is nondiagnostic. An ABG done on 100% oxygen showed pH of 7.50, pCO2 of 48, and PO2 of 66. Chest x- ray obtained this morning showed diffuse bilateral interstitial infiltrates, but no changes were seen when compared to her previous chest x-rays. IMPRESSIONS: 1. Acute on chronic hypoxemic respiratory failure with bilateral pneumonia. 2. Severe immunoglobulin deficiency. 3. Hypokalemia. PLAN: We will continue with broad-spectrum antibiotics including Zosyn and levofloxacin and continue with supplemental oxygen, along with supportive care. Her potassium levels continue to be low and therefore we are going to give her some more potassium supplements. The patient's condition continues to require inpatient care and since her recovery is going to take a longer time, we are going to consider long-term acute care facility transfer. This will be done if she is approved to be transferred there by pulmonology. Further care will be provided as per hospital course. cc: Jose R Laguna MD
[2019-09-25] MEDS: ABILIFY PO SCH (20:51)
[2019-09-26] MEDS: TYLENOL PO PRN ×2 (00:02→12:05)
--- NOTE | 2019-09-26 00:57 | PULMONOLOGY PROGRESS NOTE ---
DATE: 09/25/2019 SUBJECTIVE: The patient is awake and alert. She reports she has had a pretty good day. OBJECTIVE: Vital Signs: The patient has been afebrile for the last 24 hours. Blood pressure 138/72, heart rate 70, respiratory rate 19, oxygen saturation 96% on non-rebreather. HEENT: Pupils are equal and reactive. Oropharynx appears clear. Neck: Supple. Chest: Reveals faint crackles bilaterally. Cardiac: S1-S2. Abdomen: Soft with good bowel sounds. Extremities: Without edema. LABORATORIES: Arterial blood gas reveals a pH 7.50, pCO2 of 48, pO2 of 66. White blood count 11.13, hemoglobin 13.3, platelet count 157,000. Sodium 142, potassium 3.1, chloride 94, bicarbonate 33, BUN 16, creatinine 0.5. Chest x-ray reveals bilateral infiltrates without significant change. IMPRESSION: A 64-year-old with: 1. Community-acquired pneumonia with adult respiratory distress syndrome. 2. Acute hypoxemic respiratory failure. 3. Chronic obstructive pulmonary disease. 4. Immunoglobulin deficiency status post replacement. 5. Nicotine addiction/tobacco use. DISCUSSION: A 64-year-old with problems outlined above. Clinically, she continues to do well but does require at a high FiO2 to maintain saturations. She likely has sustained a significant lung injury which will take several weeks to heal. RECOMMENDATIONS: 1. Continue current antibiotics. 2. Wean oxygen as tolerated. 3. Diuresis as tolerated. 4. Agree with plans for transfer to the LTAC. cc: MD Jose R Barton MD
[2019-09-26] MEDS: ZOSYN 3.375 GM in NS 50 ML IV SCH ×4 (03:35→21:20)
[2019-09-26] MEDS: HYDROMET LIQUID PO PRN ×3 (03:39→21:56)
[2019-09-26] MEDS: DUONEB (A & A) INH SCH ×4 (03:55→23:18)
[2019-09-26 04:21] LABS: ALLEN TEST YES; BE 11.8 mmoll (-3.0-3.0); BLOOD TYPE ARTERIAL; HCO3-(ACT) 34.1 mmoll (20.0-26.0); METHB 1.3 % (0.0-1.5); O2(CT) 19.3 mL/dL (15.0-23.0); O2HB 94.9 % (95.0-99.0); PO2(98.6) 82 mmHg (60-100); SAMPLE BLOOD; SAO2 97.6 % (95.0-100.0); THB 14.4 g/dL (11.5-17.4); pH(98.6) 7.41 (7.35-7.45)
[2019-09-26 04:29] LABS: MODALITY NRB; PCO2(98.6) 62 mmHg (35-45)
[2019-09-26 06:06] LABS: BASO# 0.13 X1000 (0.0-0.2); EOS# 0.01 X1000 (0.0-0.7); EOS% 0.1 % (0.0-10.0); HEMATOCRIT 43.3 % (37.0-47.0); HEMOGLOBIN 13.3 g/dL (12.0-16.0); IMM GRAN% 9.3 % (0.0-0.5); LYMPH# 0.69 X1000 (1.2-3.4); LYMPH% 5.4 % (20.5-51.1); MCH 27.5 PG (27-31); MCHC 30.7 g/dL (33-37); MCV 89.6 FL (81-99); MONO# 0.28 X1000 (0.11-0.59); MONO% 2.2 % (1.7-9.3); MPV 10.2 FL (7.4-10.4); NEUT# 10.58 X1000 (1.4-6.5); PLT 147 X1000 (130-400); RBC 4.83 XMIL (4.2-5.4); RDW 14.9 % (11.5-14.5); WBC 12.89 X1000 (4.8-10.8)
[2019-09-26 06:38] LABS: AGAP 8; BUN 25 mg/dL (8-22); CHLORIDE 97 mmol/L (98-107); COSMO 291; CREATININE 0.4 mg/dL (0.5-0.9); ESTIMATED GFR > 60; GLUCOSE 125 mg/dL (70-104); MAGNESIUM 2.2 mg/dL (1.5-2.7); POTASSIUM 3.7 mmol/L (3.5-5.1); SODIUM 143 mmol/L (136-145); TCO2 38 mmol/L (25-35)
[2019-09-26 07:37] LABS: BANDS 2 % (0-1); EOS 2 % (1-10); HYPOCHROM 1+; LYMPHS 10 % (21-51); MONO 2 % (1-9); SEGS 82 % (42-75)
[2019-09-26] MEDS: SOLU-MEDROL IV SCH ×2 (07:37→20:22)
[2019-09-26] MEDS: LOVENOX SUBQ SCH (07:54)
[2019-09-26] MEDS: LEVAQUIN PO SCH (08:17)
[2019-09-26] MEDS: KLOR-CON PO SCH (08:17)
[2019-09-26] MEDS: DEPAKOTE ER PO SCH ×2 (08:17→20:22)
[2019-09-26] MEDS: CELEXA PO SCH (08:17)
[2019-09-26] MEDS: SYMBICORT 160/4.5 MICROGM INHALER INH SCH ×2 (08:50→19:28)
[2019-09-26] MEDS: TESSALON PO PRN (10:17)
[2019-09-26] MEDS: XANAX PO PRN ×2 (10:17→21:56)
--- NOTE | 2019-09-26 14:42 | PROGRESS NOTE ---
DATE: 09/26/2019 SUBJECTIVE: The patient denies having any acute complaints today. She states that she feels better as compared to yesterday. Nursing reported that patient had a significant hypoxemic event while using the commode. She was subsequently given a breathing treatment and felt better with those steps including 100% oxygen via non-rebreather. OBJECTIVE: Vital Signs: Temperature 97.6 degrees, pulse 80 per minute, respiratory rate 28 per minute, blood pressure 120/59, pulse oximetry 92 percent on 100% oxygen via non- rebreather mask. Cardiovascular System: First and second heart sounds are audible without any murmurs or gallops. Respiratory System: Bilateral lung air entry is good without any rales or rhonchi. Abdomen: Soft and nondistended. Normal bowel sounds are present. DIAGNOSTIC DATA: CBC shows WBC count of 12.89 with 82% neutrophils. Rest of the CBC is nondiagnostic. Basic metabolic panel shows BUN of 25 and normal creatinine of 0.4. Potassium levels have improved from 2.1 to 3.7 today. Arterial blood gases obtained on 100% oxygen via non- rebreather mask showed pH of 7.41, pCO2 62, and PO2 82. IMPRESSION: 1. Acute on chronic hypoxemic respiratory failure with bilateral pneumonia and acute respiratory distress syndrome. 2. Severe immunoglobulin deficiency. 3. Generalized weakness and deconditioning. PLAN: We will continue with broad-spectrum antibiotics including Zosyn and levofloxacin and continue with the IV Solu-Medrol as per pulmonology. We will also continue with supplemental oxygen along with supportive care. The patient has been getting some physical therapy, but overall her condition remains not very good, likely secondary to pulmonary trauma that will require a longer time for which we are considering her to be transferred to long-term acute care facility. I am going to discuss that with the home health care social worker and probably coordinate that with Pulmonology and then transfer her sometime next week if approved by Pulmonary Medicine. cc: MD LILLIAN Fajardo
[2019-09-26] MEDS: VENTOLIN HFA INH PRN (19:28)
[2019-09-26] MEDS: ABILIFY PO SCH (20:22)
--- NOTE | 2019-09-26 23:54 | PULMONOLOGY PROGRESS NOTE ---
DATE: 09/26/2019 SUBJECTIVE: The patient is awake and alert. She states that she feels better today. OBJECTIVE: Vital Signs: Blood pressure is 109/66 with heart rate of 74, respirations are 20 to 22, temperature is 97.5 degrees with O2 saturations that are 97% on 6 L nasal cannula. HEENT: Pupils equal, round, react to light. Sclerae are anicteric. Cardiovascular: Regular rate and rhythm. S1 and S2 appreciated. She has no lower extremity edema. Peripheral pulses are palpable x4 extremities. Neck: Supple. Trachea midline. Pulmonary: Breath sounds are clear with no increased work of breathing noted. Neurologic: She is alert and oriented. LABORATORIES: WBC is 12.8 with hemoglobin 13.3, hematocrit 43.3, and platelets 147,000. Sodium 143, potassium 3.7, BUN 25, creatinine 0.4 with a glucose of 125. ABGs, pH 7.41 with a pCO2 of 62, PO2 of 82, and bicarbonate of 34.1. This is on a nonrebreather. IMPRESSION: 1. Community-acquired pneumonia with adult respiratory distress syndrome. 2. Acute hypoxemic respiratory failure. 3. Chronic obstructive pulmonary disease. 4. Immunoglobulin deficiency, status post replacement. 5. Nicotine addiction/tobacco use. PLAN: continue with her current antibiotic management. Wean oxygen as tolerated. Continue to diurese agree with plans to transfer to LTAC. Plan was discussed with Dr. Doyle. Dictated by ERICA Yao for David Doyle MD cc: ERICA Yao MD Adnan A. Seljuki, MD MTDD
[2019-09-27] MEDS: TYLENOL PO PRN (03:12)
[2019-09-27] MEDS: ZOSYN 3.375 GM in NS 50 ML IV SCH ×4 (03:19→22:12)
[2019-09-27] MEDS: DUONEB (A & A) INH SCH ×4 (03:42→22:19)
[2019-09-27 05:38] LABS: ALLEN TEST YES; BE 12.9 mmoll (-3.0-3.0); BLOOD TYPE ARTERIAL; HCO3-(ACT) 34.9 mmoll (20.0-26.0); METHB 1.1 % (0.0-1.5); O2(CT) 17.1 mL/dL (15.0-23.0); O2HB 94.2 % (95.0-99.0); PO2(98.6) 78 mmHg (60-100); SAMPLE BLOOD; SAO2 96.8 % (95.0-100.0); THB 12.9 g/dL (11.5-17.4); pH(98.6) 7.43 (7.35-7.45)
[2019-09-27 05:39] LABS: MODALITY NRB; PCO2(98.6) 60 mmHg (35-45)
[2019-09-27 06:37] LABS: AGAP 9; BUN 30 mg/dL (8-22); CALCIUM 8.8 mg/dL (8.8-10.2); CHLORIDE 98 mmol/L (98-107); COSMO 289; CREATININE 0.4 mg/dL (0.5-0.9); ESTIMATED GFR > 60; GLUCOSE 128 mg/dL (70-104); POTASSIUM 4.5 mmol/L (3.5-5.1); SODIUM 141 mmol/L (136-145); TCO2 34 mmol/L (25-35)
[2019-09-27 06:39] LABS: BASO# 0.13 X1000 (0.0-0.2); BASO% 0.9 % (0.0-0.8); EOS# 0.01 X1000 (0.0-0.7); EOS% 0.1 % (0.0-10.0); HEMATOCRIT 40.7 % (37.0-47.0); HEMOGLOBIN 12.5 g/dL (12.0-16.0); IMM GRAN% 10.9 % (0.0-0.5); LYMPH# 0.95 X1000 (1.2-3.4); LYMPH% 6.5 % (20.5-51.1); MCH 27.8 PG (27-31); MCHC 30.7 g/dL (33-37); MCV 90.4 FL (81-99); MONO% 2.7 % (1.7-9.3); MPV 10.2 FL (7.4-10.4); NEUT# 11.55 X1000 (1.4-6.5); NEUT% 78.9 % (42.2-75.2); PLT 169 X1000 (130-400); RDW 14.9 % (11.5-14.5); WBC 14.64 X1000 (4.8-10.8)
[2019-09-27 07:47] LABS: BANDS 2 % (0-1); LYMPHS 6 % (21-51); SEGS 90 % (42-75)
[2019-09-27] MEDS: HYDROMET LIQUID PO PRN ×2 (08:10→22:12)
[2019-09-27] MEDS: SYMBICORT 160/4.5 MICROGM INHALER INH SCH ×2 (09:22→22:19)
[2019-09-27] MEDS: CELEXA PO SCH (10:20)
[2019-09-27] MEDS: DEPAKOTE ER PO SCH ×2 (10:20→20:19)
[2019-09-27] MEDS: LEVAQUIN PO SCH (10:20)
[2019-09-27] MEDS: SOLU-MEDROL IV SCH ×2 (10:21→20:19)
[2019-09-27] MEDS: LOVENOX SUBQ SCH (10:21)
[2019-09-27] MEDS: XANAX PO PRN ×2 (13:37→22:12)
--- NOTE | 2019-09-27 13:37 | PROGRESS NOTE ---
DATE: 09/27/2019 VITAL SIGNS: Temperature 97.4 degrees, heart rate 70, respirations 18, blood pressure 124/61, O2 saturation on non-rebreather 97%. LABORATORY: Hemoglobin 12.5, hematocrit 40.7, white blood count 14,600 with 79% neutrophils. Blood culture and throat culture have been negative for growth. Influenza tests were negative. Clostridium study on her stool was negative. The patient states that she feels better and is breathing a little easier. Lungs to auscultation reveal decreased breath sounds at the right base more than the left, and a few coarse rhonchi bilaterally. IMAGING: Chest x-ray September 25 revealed no change with stable dense diffuse interstitial infiltrates bilaterally. PLAN: Repeat chest x-ray tomorrow. She will be up in a chair as tolerated. She is eating fairly well. Antibiotics will be continued with Zosyn and Levaquin. Her leukocytosis may be related to her steroids. She is receiving Solu-Medrol 40 mg IV every 12 hours. Plan chest x-ray tomorrow morning. cc: MD Jose R Elias MD
--- NOTE | 2019-09-27 20:00 | PULMONOLOGY PROGRESS NOTE ---
DATE: 09/27/2019 SUBJECTIVE: The patient is awake and alert. She states she feels better today. OBJECTIVE: Vital Signs: Blood pressure is 128/90, with a heart rate of 79, respirations 18, temperature is 97.5 degrees axillary, with O2 saturations that are 92 to 96 percent on a non- rebreather. Cardiovascular: Regular rate and rhythm. S1 and S2 appreciated. She has no lower extremity edema. Peripheral pulses are palpable x4 extremities. Pulmonary: Breath sounds are clear with no increased work of breathing noted. Chest rises and falls symmetric to respiration. Neck: Supple with trachea midline. Neurologic: Alert and oriented x3. Gastrointestinal: Abdomen is soft, nontender, nondistended, with bowel sounds in all 4 quadrants. LABORATORY DATA: WBC is 14, with hemoglobin of 12.5, hematocrit 40.7, and platelets of 169,000. Sodium 141, potassium 4.5, BUN 30, creatinine 0.4, with a glucose of 75. ABGs, pH is 7.43, with a pCO2 of 60, PO2 of 78, and bicarbonate of 34.9. This is on 100% nonrebreather. IMPRESSION: 1. Community-acquired pneumonia with adult respiratory distress syndrome. 2. Acute hypoxemic respiratory failure. 3. Chronic obstructive pulmonary disease. 4. Immunoglobulin deficiency, status post replacement. 5. Nicotine addiction, tobacco abuse. PLAN: continue with her current antibiotic regimen of Levaquin and Zosyn bronchodilators and steroids. Wean oxygen as tolerated. continue to diuresis. Agree with plans to transfer to LTAC. Plan was discussed with Dr. Doyle. Dictated by ERICA Yao for David Doyle MD cc: ERICA Yao MD Adnan A. Seljuki, MD [facility]
[2019-09-27] MEDS: ABILIFY PO SCH (20:19)
[2019-09-28] MEDS: DUONEB (A & A) INH SCH ×4 (02:55→22:30)
[2019-09-28] MEDS: ZOSYN 3.375 GM in NS 50 ML IV SCH ×4 (05:09→21:00)
[2019-09-28] MEDS: HYDROMET LIQUID PO PRN ×2 (05:29→18:59)
--- NOTE | 2019-09-28 07:17 | Diag Imaging Result Doc PS360 ---
EXAM: CHEST-PORTABLE 09/28/2019 HISTORY: pneumonia TECHNIQUE: AP portable at [id number] COMMENT: There is diffuse alveolar opacity with air bronchograms bilaterally. There may be slight improvement in the lingula as partial visualization of the left heart border is now present. IMPRESSION: Slightly improved pulmonary edema/ARDS. Electronically signed by Brody Moise 09/28/2019 7:15 AM
[2019-09-28] MEDS: DEPAKOTE ER PO SCH ×2 (08:10→20:50)
[2019-09-28] MEDS: SOLU-MEDROL IV SCH ×2 (08:11→20:50)
[2019-09-28] MEDS: CELEXA PO SCH (08:11)
[2019-09-28] MEDS: LOVENOX SUBQ SCH (08:11)
[2019-09-28] MEDS: LEVAQUIN PO SCH (08:11)
--- NOTE | 2019-09-28 08:11 | PROGRESS NOTE ---
DATE: 09/28/2019 Vital signs stable with temperature 98.3 degrees, heart rate 77, respirations 20, blood pressure 138/67, O2 saturation on nonrebreather mask of 96%. Chest x-ray, mildly improved pulmonary edema and ARDS. There was partial visualization of the left heart border, not seen before. Chest is fairly clear except for decreased breath sounds at the bases. Abdomen is soft. She is eating poorly. Ensure will be added. cc: MD Jose R Elias MD
[2019-09-28] MEDS: XANAX PO PRN ×2 (09:50→22:50)
[2019-09-28] MEDS: SYMBICORT 160/4.5 MICROGM INHALER INH SCH ×2 (11:21→22:30)
--- NOTE | 2019-09-28 16:30 | PULMONOLOGY PROGRESS NOTE ---
DATE: 09/28/2019 SUBJECTIVE: The patient is resting in bed. She complains of a nonproductive cough. She is in no distress. OBJECTIVE: Vital Signs: Blood pressure is 138/67, heart rate of 77, respirations 20, temperature 98.3 degrees oral, O2 saturations 95% to 97% on 100% non-rebreather. Cardiovascular: Regular rate and rhythm. S1 and S2 appreciated. She has no lower extremity edema. Peripheral pulses are palpable x4 extremities. Pulmonary: Breath sounds are clear with no increased work of breathing. She is somewhat diminished at the bases. Chest rises and falls symmetric with respiration. Gastrointestinal: Abdomen is soft, nontender, nondistended. Bowel sounds in all four quadrants. Neurologic: She is alert and oriented. LABS: WBC is 14.6 with hemoglobin 12.5, hematocrit 40.7 and platelets of 169,000. Sodium 141, potassium 4.5, BUN 30, creatinine 0.4 with a glucose of 128. ABGs, pH is 7.4 with pCO2 of 60, pO2 of 78, bicarb of 34.9. This is on 100% nonrebreather. IMAGING: Chest x-ray reveals slightly improved pulmonary edema and ARDS. ASSESSMENT: 1. Community-acquired pneumonia with adult respiratory distress syndrome. 2. Acute hypoxemic respiratory failure. 3. Chronic obstructive pulmonary disease. 4. Immunoglobulin deficiency, status post replacement. 5. Nicotine addiction, tobacco abuse. PLAN: continue her current antibiotic regimen of Levaquin and Zosyn. Continue bronchodilators. Wean oxygen as tolerated. Agree with plans to transfer to LTAC. Plan was discussed with Dr. Doyle. Dictated by ERICA Yao for David Doyle MD cc: ERICA Yao MD Adnan A. Seljuki, [facility]
[2019-09-28] MEDS: ABILIFY PO SCH (20:50)
[2019-09-29] MEDS: DUONEB (A & A) INH SCH ×3 (03:34→15:55)
[2019-09-29] MEDS: ZOSYN 3.375 GM in NS 50 ML IV SCH ×4 (04:47→16:14)
[2019-09-29] MEDS: HYDROMET LIQUID PO PRN ×2 (06:44→16:16)
[2019-09-29] MEDS: LEVAQUIN PO SCH ×2 (07:57→09:54)
[2019-09-29] MEDS: CELEXA PO SCH ×2 (07:57→09:54)
[2019-09-29] MEDS: DEPAKOTE ER PO SCH ×2 (07:57→09:54)
[2019-09-29] MEDS: LOVENOX SUBQ SCH (07:57)
[2019-09-29] MEDS: SOLU-MEDROL IV SCH (07:57)
[2019-09-29] MEDS: SYMBICORT 160/4.5 MICROGM INHALER INH SCH (10:37)
--- NOTE | 2019-09-29 12:03 | DISCHARGE SUMMARY ---
ADMISSION DATE: 09/16/2019 DISCHARGE DATE: 09/29/2019 DISCHARGE DIAGNOSES: 1. Acute on chronic hypoxemic respiratory failure with acute respiratory distress syndrome secondary to bilateral pneumonia. 2. Acute chronic obstructive pulmonary disease exacerbation. 3. Multiple comorbid conditions including hypertension, bipolar disorder, and previous history of lung adenocarcinoma. HOSPITAL COURSE: This is a 64-year-old female who was admitted to the hospital after she presented to the emergency department with cough along with shortness of breath and wheezing. She was diagnosed as having left lower lung pneumonia and acute chronic obstructive pulmonary disease exacerbation. She was initiated on ceftriaxone along with doxycycline and albuterol plus Atrovent nebulization treatments. She was also given supplemental oxygen and pulmonology consultation with Dr. Doyle was obtained, who was actively involved in the care of this patient during this hospital admission. The patient's condition deteriorated initially. Her chest x-rays showed ARDS. Meanwhile, pulmonology discontinued her ceftriaxone and switched her to Zosyn intravenously and doxycycline was switched to levofloxacin. She was also given IV Solu-Medrol. General supportive care was also provided to her. Gradually, the patient's condition started to improve, although her chest x-rays still showed bilateral infiltrates with an ARDS pattern. Her clinical condition continues to improve but she still requires 100% oxygen via nonrebreather. It has been recommended that she would require prolonged hospital admission and her lungs would require a prolonged time for recovery as per pulmonology. Because of this fact, the patient has been decided to be transferred to a long-term acute care facility. LTAC in [place] declined to accept the patient since she did not meet their criteria. Therefore, we have decided the patient to be transferred to [facility] swing bed. DISCHARGE MEDICATIONS: 1. Zosyn 3.375 g IV q.6 hours. 2. Levofloxacin 500 mg orally once daily. 3. Albuterol and Atrovent nebulization treatments every 6 hours. 4. Acetaminophen 650 mg every 6 hours as needed for pain and fever. 5. Alprazolam 0.5 mg orally twice daily as needed for anxiety. 6. Abilify 5 mg orally once daily at bedtime. 7. Depakote ER 500 mg orally twice daily. 8. Lovenox 30 mg subcutaneously every 24 hours. 9. Methylprednisolone 40 mg IV q.12 hours. 10. Citalopram 40 mg orally once daily. FOLLOWUP: She will be followed up by the medical doctor md at [facility] and we will assume care once she is discharged from there. TIME SPENT: A total of more than 40 minutes were spent during the discharge process. cc: Jose R Laguna MD MTDD
[2019-09-29] MEDS: XANAX PO PRN (12:21)
[2019-09-29 15:09] VITALS: BP 124/82
== END 2019-09-29 16:24 | disposition swing bed (61) | DRG 193 ==
LOC: P.ED 05:23 → P.EDIPHOLD 05:23 → 3N 05:23 → 2N 09-18 19:18
PROVIDERS: ADMIT Internal Medicine; ATTEND Internal Medicine